=== PATIENT | female | born 1985 | race Caucasian/White ===

== ENCOUNTER → 2017-05-20 13:34 | Outpatient (CLI) | payer MEDICAID, SELFPAY ==
--- NOTE | 2017-05-20 13:39 | CT_ITS ---
CT angio chest HISTORY: ITS.REASON: CHEST PAIN, HX PE ORDERING PHYSICIAN: Marlon Vang MD PATIENT AGE: 32 years TECHNIQUE: Axial images obtained following the administration of 75 mL of Isovue 370 . Sagittal, and coronal reformatted images are also generated and reviewed. COMPARISON: 09/20/2016 FINDINGS: Previously noted pulmonary emboli have resolved. No acute hemorrhage embolus or aortic aneurysm or dissection is evident. Normal heart size without evidence of pericardial effusion. Previously noted consolidation in the right upper lobe has improved with some minimal opacity in the right middle lobe laterally which may be due to postinflammatory scarring.. Consolidation in the lingula has improved. There is minimal density in the segment left lower lobe posteriorly may be due to an area of atelectasis. Upper abdominal images are unremarkable. Calcified nodes are present in the subcarinal region. No acute bony anomalies. IMPRESSION: 1. Resolved pulmonary emboli 2. Probable postinflammatory scarring right middle lobe with resolved consolidation in the right middle lobe and lingula
== END ==
PROVIDERS: Family Provider Family Medicine; PCP Family Medicine; Visit Provider Family Medicine
DX: R07.9 Chest pain, unspecified (principal); Z86.711 Personal history of pulmonary embolism
CPT/HCPCS: 71275; Q9967

== ENCOUNTER 2017-07-01 15:14 | Emergency (ER) | payer MEDICAID, SELFPAY ==
[2017-07-01 15:24] VITALS: BP 130/76; PULSE 101; RESP 20; TEMP 36.4; O2SAT 95; BMI 38.4
--- NOTE | 2017-07-01 16:00 | HMH.EDUTC ---
[facility] [place] Impression: Viral upper respiratory illness Disposition: Home, Self-Care Condition on Discharge: Good Instructions: DI for Viral Upper Respiratory Infection -- Adult Additional Instructions: * No sign of bacterial infection. Likely viral. Virus can take 7-14 days to run their course * Monitor Temp. Follow up if fever develops * Encourage fluids, water, gatorade, powerade, pedialyte if infant/toddler/child * warm salt water gargles * warm fluids * sore throat lozenges * sleep elevated * humidifier/vaporizer * Start claritin daily * flonase 2 sprays each nostril daily but may take 2-3 days to notice improvement with it. * OK to continue sudafed Referrals: Marlon Vang MD [Primary Care Provider] - (Follow up IMMEDIATELY for new or worsening symptoms OR no noticeable improvement over the next 72 hours. 911 for difficulty breathing or swallowing) Time of Disposition: 16:15 Medical Decision Making - Mau Inquiry Pt receiving controlled substance: No Vital Signs: 07/01/17 15:24 Temperature 97.5 F L Temperature Source Temporal Artery Scan Pulse Rate [Brachial] 101 H Respiratory Rate 20 Blood Pressure [Right Arm] 130/76 Blood Pressure Mean [Right Arm] 94 Blood Pressure Source [Right Arm] Automatic Cuff Blood Pressure Position [Right Arm] Sitting 02 Sat by Pulse Oximetry 95 Oxygen Delivery Method Room Air [facility] [place] - General Stated complaint: dickinson,pressure Time Seen by Provider: 07/01/17 16:00 Mode of Arrival: Ambulatory Source of Information: Patient Limitations: No Limitations Description of Symptoms (Recalled from Triage Doc. by RN): SINUS PRESSURE, H/A, SLEEPY HEENT Symptoms (Recalled from RN notes): Yes Resp Symptoms (Recalled from RN notes): No Skin Symptoms (Recalled from RN notes): No MS Symptoms (Recalled from RN notes): No Functional Status (Recalled from RN notes): NA - History of Present Illness Provider Complaint: c/o nasal congestion, head pressure, generalized malaise since this morning. No fever, aches, chills. Sudafed only helps sinus pressure. No known sick contacts. No sore throat just drainage - Related Data Allergies Allergy/AdvReac Type Severity Reaction Status Date / Time No Known Allergies Allergy Unverified 03/26/17 15:13 - Worker's Comp Is this a Worker's Comp case?: No [facility] History I have reviewed the patient's past medical history: Yes (denies PMHx) Medical History: Denies:: Diabetes Mellitus Type 1, Diabetes Mellitus Type 2, Hypertension Laterality Cases: Bilateral: Tonsillectomy Other Surgeries: Yes: - Social History Alcohol Intake: never - Psychiatric History Expresses thoughts of harming self/others: None Suicide Plan Description: No Plan ROS Obtained: Yes Systems reviewed as appropriate & no additional complaints - Constitutional Constitutional: Reports as per HPI, Denies difficulty sleeping, Denies poor appetite - Eyes Eyes: Denies eye discharge, Denies itchy eyes - ENT Ears, Nose, Mouth, and Throat: Reports as per HPI, Denies difficulty swallowing, Denies otalgia, Denies nasal discharge, Denies pain with swallowing - Cardiovascular Cardiovascular: Denies chest pain, Denies irregular heart rhythm - Respiratory Respiratory: No cough - Gastrointestinal Gastrointestingal: Denies: diarrhea, vomiting - Integumentary/Breasts Skin/Breast: Denies rash - Neurologic Neurologic: Reports as per HPI, Denies dizziness, Reports headache(s), Denies weakness Physical Exam - General General appearance: alert, in no apparent distress - Eye Eye exam: Present: normal appearance - ENT ENT exam: Present: normal oropharynx, mucous membranes moist, TM's normal bilaterally, normal external ear exam - Expanded ENT Exam Nose exam: Absent: sinus tenderness Nasal speculum exam: Bilateral: other (congested) - Neck Neck exam: Absent: tenderness, lymphadenopathy - Chest Chest inspection: Present: symmetric
[2017-07-01 16:17] VITALS: BP 130/76; PULSE 101; RESP 20; TEMP 36.4; O2SAT 95
== END 2017-07-01 16:18 | disposition home or self-care (01) ==
PROVIDERS: Emergency Provider Nurse Practitioner Family; Family Provider Family Medicine; PCP Family Medicine
DX: J06.9 Acute upper respiratory infection, unspecified (principal)
CPT/HCPCS: 99201

== ENCOUNTER → 2018-03-21 10:01 | Outpatient (CLI) | payer MEDICAID, SELFPAY ==
--- NOTE | 2018-03-21 10:03 | XR_ITS ---
XR wrist LT min 3V HISTORY wrist pain ITS.REASON: b/l carpal tunnel ORDERING PHYSICIAN: Carlie Perry MD PATIENT AGE: 32 years Comparison: None FINDINGS: No fracture or dislocation. No lytic or blastic change. There is normal mineralization.. The joint spaces are well-preserved. No significant degenerative/arthritic changes. No erosive changes evident.. IMPRESSION: Negative wrist
--- NOTE | 2018-03-21 10:03 | XR_ITS ---
XR wrist RT min 3V HISTORY wrist pain ITS.REASON: b/l carpal tunnel ORDERING PHYSICIAN: Carlie Perry MD PATIENT AGE: 32 years Comparison: None FINDINGS: No fracture or dislocation. No lytic or blastic change. There is normal mineralization.. The joint spaces are well-preserved. No significant degenerative/arthritic changes. No erosive changes evident.. IMPRESSION: Negative wrist
== END ==
PROVIDERS: PCP Family Medicine; Visit Provider Orthopaedic Surgery
DX: G56.03 Carpal tunnel syndrome, bilateral upper limbs (principal)
CPT/HCPCS: 73110

== ENCOUNTER 2018-09-04 18:48 | Emergency (ER) | payer MEDICAID, SELFPAY ==
[2018-09-04 18:54] VITALS: BP 122/87; PULSE 76; RESP 16; TEMP 36.8; O2SAT 97; BMI 31.6
[2018-09-04 19:11] VITALS: BP 122/87; PULSE 76; RESP 16; TEMP 36.8; O2SAT 97
== END 2018-09-04 19:13 | disposition home or self-care (01) ==
LOC: UTC 18:50
PROVIDERS: Emergency Provider Nurse Practitioner Family; PCP Family Medicine
DX: Z11.1 Encounter for screening for respiratory tuberculosis (principal)
CPT/HCPCS: 90471; 99201

== ENCOUNTER → 2018-12-26 12:23 | Outpatient (CLI) | payer MEDICAID, SELFPAY ==
--- NOTE | 2018-12-26 | ECG_ITS ---
APPROVED REPORT Exam: Resting ECG HR:63 bpm ECG Measurements Heart Rate 63 AXES OR 196 P 30 QRSd 82 QRS 17 QT 382 T 50 QTc 390 <Conclusion> Normal sinus rhythm Normal ECG Electronically signed by : Jimenez Mota, 12/27/2018 12:15:41
== END ==
PROVIDERS: PCP Family Medicine; Visit Provider Nurse Practitioner Psychiatric/Mental Health
DX: F33.1 Major depressive disorder, recurrent, moderate (principal)
CPT/HCPCS: 93005

== ENCOUNTER → 2019-01-22 08:15 | Outpatient (CLI) | payer OTHER, SELFPAY ==
[2019-01-22 08:45] LABS: Basophils # 0.1 K/mm3 (0-0.2); Basophils % 0.7 % (0.1-2.0); Eosinophils # 0.2 K/mm3 (0.0-0.4); Eosinophils % 2.3 % (0.1-12.0); Hematocrit 41.1 % (37.0-47.0); Hemoglobin 13.1 g/dL (12.2-16.2); Lymphocytes # 1.8 K/mm3 (0.7-4.5); Lymphocytes % 20.7 % (10-50); Mean Corpuscular HGB Conc 31.8 g/dL (31.8-35.4); Mean Corpuscular Hemoglobin 27.7 pg (27.0-31.2); Mean Corpuscular Volume 86.9 fl (81-99); Mean Platelet Volume 8.4 fl (7.4-10.4); Monocytes # 0.5 K/mm3 (0.1-1.0); Monocytes % 5.7 % (1.7-9.3); Neutrophils # 6.3 K/mm3 (1.8-7.8); Neutrophils % 70.6 % (37.0-80.0); Platelet Count 250 K/mm3 (142-424); Red Blood Count 4.73 M/mm3 (4.20-5.40); Red Cell Distribution Width 14.2 % (11.5-17.5); White Blood Count 8.9 K/mm3 (4.8-10.8)
[2019-01-22 11:55] LABS: Alanine Aminotransferase 22 U/L (12-78); Albumin Level 3.5 gm/dL (3.4-5.0); Alkaline Phosphatase 71 U/L (46-116); Anion Gap 13.3 mEq/L (5-15); Aspartate Amino Transferase 13 U/L (15-37); Bilirubin,Total 0.5 mg/dL (0.2-1.0); Blood Urea Nitrogen 12 mg/dL (7-18); Calcium 8.7 mg/dL (8.5-10.1); Carbon Dioxide 27 mmol/L (21.0-32.0); Chloride 103 mmol/L (98-107); Chol/HDL Ratio 3.6 (1-3.5); Cholesterol 141 mg/dL (140-200); Creatinine,Serum 0.67 mg/dL (0.55-1.02); Estimated Glomerular Filt Rate 101 ml/min (>60); Free Thyroxine Index 2.9 ug/dL (5.93-13.13); GFR (African American) 122 ML/MIN (>60); Globulin 3.4 gm/dl (1.3-3.2); Glucose 96 mg/dL (74-106); HDL Cholesterol 39 mg/dL (29-89); LDL Cholesterol 91 mg/dL (0-130); Potassium 4.3 mmoL/L (3.5-5.1); Sodium 139 mmol/L (136-145); T4 (Thyroxine) 8.4 ug/dl (4.7-13.3); Thyroid Stimulating Hormone 1.32 uIU/ml (0.358-3.740); Total Protein,Serum 6.9 gm/dL (6.4-8.2); Triglycerides 56 mg/dL (30-200); Triiodothryronine (T3) Uptake 34 % (31-39); VLDL Cholesterol 11 mg/dL (0-40)
[2019-01-22 15:40] LABS: Amphetamine/Metha Screen,Urine Negative ng/mL (<1000); Barbiturates Screen,Urine Negative ng/mL (<200); Benzodiazepines Screen,Urine Negative ng/mL (<200); Cannabinoid Screen,Urine Negative ng/mL (<50); Cocaine Screen,Urine Negative ng/mL (<300); Methadone Screen,Urine Negative ng/mL (<300); Opiate Screen,Urine Negative ng/mL (<300); Phencyclidine Screen,Urine Negative ng/mL (<25)
[2019-01-23 17:27] LABS: Vitamin D 25 Hydroxy 35.4 ng/mL (30.0-100.0)
== END ==
PROVIDERS: Visit Provider Nurse Practitioner Psychiatric/Mental Health
DX: F33.1 Major depressive disorder, recurrent, moderate (principal)
CPT/HCPCS: 36415; 80053; 80061; 80305; 82652; 84436; 84443; 84479; 85025

== ENCOUNTER → 2019-10-15 14:31 | Outpatient (CLI) | payer BC, SELFPAY | PROVIDERS: PCP Nurse Practitioner Family; Visit Provider Nurse Practitioner Family | DX: Z11.1 Encounter for screening for respiratory tuberculosis (principal) ==

== ENCOUNTER 2019-10-21 16:33 | Emergency (ER) | payer BC, SELFPAY ==
[2019-10-21 16:33] VITALS: BP 155/75; PULSE 98; RESP 20; TEMP 37.1; O2SAT 98; BMI 39.3
--- NOTE | 2019-10-21 16:33 | ECG_ITS ---
APPROVED REPORT Exam: Resting ECG HR:91 bpm ECG Measurements Heart Rate 91 AXES CA 190 P 32 QRSd 84 QRS 0 QT 356 T 34 QTc 437 <Conclusion> Normal sinus rhythm Normal ECG Electronically signed by : Jimenez Mota, 10/23/2019 17:08:30
--- NOTE | 2019-10-21 16:34 | XR_ITS ---
PROCEDURE: XR CHEST 2V CLINICAL HISTORY: CHest Pain COMPARISON: 10/12/2016 FINDINGS: The cardiomediastinal silhouette and pulmonary vascularity are within normal limits. The lungs are clear without infiltrates, suspicious nodules, or pleural effusions. No acute bony abnormalities. IMPRESSION: No acute findings. Dictated by: Abisai Moya MD 10/21/2019 17:44 Electronically signed by Abisai Moya MD in [place] 10/21/2019 17:44
--- NOTE | 2019-10-21 17:00 | PC.NURSE ---
back from ct
[2019-10-21 17:02] LABS: Basophils # 0.1 K/mm3 (0-0.2); Basophils % 0.8 % (0.1-2.0); Eosinophils # 0.3 K/mm3 (0.0-0.4); Eosinophils % 2.7 % (0.1-12.0); Hematocrit 41.5 % (37.0-47.0); Hemoglobin 14.1 g/dL (12.2-16.2); Lymphocytes # 2.5 K/mm3 (0.7-4.5); Lymphocytes % 26.1 % (10-50); Mean Corpuscular Hemoglobin 29.3 pg (27.0-31.2); Mean Corpuscular Volume 86.2 fl (81-99); Mean Platelet Volume 8.4 fl (7.4-10.4); Monocytes # 0.4 K/mm3 (0.1-1.0); Monocytes % 3.8 % (1.7-9.3); Neutrophils # 6.3 K/mm3 (1.8-7.8); Neutrophils % 66.7 % (37.0-80.0); Platelet Count 228 K/mm3 (142-424); Red Blood Count 4.82 M/mm3 (4.20-5.40); Red Cell Distribution Width 13.6 % (11.5-17.5); White Blood Count 9.5 K/mm3 (4.8-10.8)
[2019-10-21 17:04] LABS: Chloride 102 mmol/L (98-107); Potassium 3.9 mmoL/L (3.5-5.1); Sodium 140 mmol/L (136-145)
[2019-10-21 17:07] LABS: Anion Gap 13.9 mEq/L (5-15); Blood Urea Nitrogen 13 mg/dl (7-17); Carbon Dioxide 28 mmol/L (22.0-30.0); Creatinine Clearance Estimated 173 mL/min (50-200); Estimated Glomerular Filt Rate 95 ml/min (>60); GFR (African American) 115 ML/MIN (>60)
[2019-10-21 17:08] LABS: Glucose 121 mg/dl (74-100)
[2019-10-21 17:22] LABS: Troponin I < 0.01 ng/ml (0.00-0.034)
[2019-10-21 17:24] LABS: Activated Partial Thrombo Time 22.9 seconds (23.6-34.0); INR 1.01 (0.9-1.1); Prothrombin Time 10.4 seconds (9.4-11.8)
[2019-10-21 17:34] VITALS: BP 115/72; PULSE 97; O2SAT 96
--- NOTE | 2019-10-21 17:51 | CT_ITS ---
PROCEDURE: CT ANGIO CHEST CLINCIAL INDICATION: sob Shortness of breath, midsternal chest pain, shortness of air COMPARISON: [facility] CT angio chest from 05/20/2017 TECHNIQUE: IV Contrast: 70ML OPTIRAY 350 Axial images obtained with sagittal and coronal reformats. All CT scans at the facility use one or more dose reduction, viz: automated exposure control, ma/kV adjustment per patient size (including targeted exams where dose is matched to indication, i.e. head), or iterative reconstruction technique. FINDINGS: HEART AND MEDIASTINAL STRUCTURES: Mild prominence of the thyroid gland with 3 nodules on the right and 2 nodules on the left measuring up to 10 mm. No evidence of pulmonary embolus or aortic aneurysm or dissection. Small hiatal hernia with mild nonspecific thickening of the distal esophagus. LUNGS AND PLEURAL SPACES: Old granulomatous disease. No lobar consolidation or collapse. Minimal thickening of the major fissure on the right laterally BONY STRUCTURES: No acute bony abnormalities apparent. UPPER ABDOMEN: Mild thickening of the distal esophagus with small hiatal hernia ADDITIONAL FINDINGS: No other significant abnormalities. IMPRESSION: No acute thoracic findings. Small hiatal hernia with mild thickening of the distal esophagus Dictated by: Abisai Moya MD 10/22/2019 08:11 Electronically signed by Abisai Moya MD in [place] 10/22/2019 08:12
--- NOTE | 2019-10-21 18:05 | PC.NURSE ---
Pt up to restroom
[2019-10-21 18:17] LABS: Urine Pregnancy, HCG Qual. Negative (Negative)
--- NOTE | 2019-10-21 18:32 | PC.NURSE ---
Pt returned from rad.
[2019-10-21 18:36] VITALS: BP 153/77; PULSE 90; O2SAT 97
--- NOTE | 2019-10-21 19:28 | HMH.EDCP ---
ED Disposition Clinical Impression: Atypical chest pain, Hiatal hernia, GERD (gastroesophageal reflux disease) Disposition: Home, Self-Care Condition on Discharge: Good Instructions: DI for Atypical Chest Pain, DI for Hiatal Hernia Prescriptions: Nabumetone 750 mg PO BID 10 Days #20 tab Transmission Status: Pending to [facility] Pantoprazole Sodium [Protonix 40mg tablet] 40 mg PO DAILY 30 Days #30 tab Transmission Status: Pending to [facility] Referrals: Haider Ng APRN [Primary Care Provider] - - Critical Care Critical Care Time: No Attestation: On 10/21/19, the high probability of a clinically significant, sudden or life threatening deterioration of the following system(s) required my full and direct attention, intervention and personal management. The time I documented below is in addition to time spent performing reported procedures but includes the following listed in this critical care notation. Medical Decision Making - Medical Records Medical records reviewed: Yes: I reviewed the patient's medical records. - Mau Inquiry Pt receiving controlled substance: No Vital Signs: 10/21/19 16:33 10/21/19 17:34 10/21/19 18:36 Temperature 98.7 F Temperature Source Oral Pulse Rate [Radial] 98 H 97 H 90 Respiratory Rate 20 Blood Pressure [Right Arm] 155/75 H 115/72 153/77 H Blood Pressure Mean [Right Arm] 101 86 102 Blood Pressure Source [Right Arm] Automatic Cuff Automatic Cuff Automatic Cuff Blood Pressure Position [Right Arm] Sitting Sitting Sitting 02 Sat by Pulse Oximetry 98 96 97 Oxygen Delivery Method Room Air Room Air Room Air - Lab Data Lab results reviewed: Yes: I reviewed the patient's lab results. Lab Results 10/21/19 16:48: WBC 9.5, RBC 4.82, Hgb 14.1, Hct 41.5, MCV 86.2, MCH 29.3, MCHC 34.0, RDW 13.6, Plt Count 228, MPV 8.4, Neut % (Auto) 66.7, Lymph % (Auto) 26.1, Bartholomew % (Auto) 3.8, Eos % (Auto) 2.7, Baso % (Auto) 0.8, Neut # (Auto) 6.3, Lymph # (Auto) 2.5, Bartholomew # (Auto) 0.4, Eos # (Auto) 0.3, Baso # (Auto) 0.1 10/21/19 16:48: PT 10.4, INR 1.01, APTT 22.9 L 10/21/19 16:48: Sodium 140, Potassium 3.9, Chloride 102, Carbon Dioxide 28, Anion Gap 13.9, BUN 13, Creatinine 0.70, Estimated Creat Clear 173, Estimated GFR 95, Est GFR ( Amer) 115, Glucose 121 H, Calcium 9.0, Troponin I < 0.01 10/21/19 18:00: Urine HCG, Qual Negative Result diagrams: 10/21/19 16:48 10/21/19 16:48 Orders (Tests/Meds): ED MEDICATIONS Discontinued Medications Generic Name Dose Route Start Last Admin Trade Name Belem PRN Reason Stop Dose Admin Ioversol 70 ml 10/21/19 18:32 10/21/19 18:34 Rad-Optiray 350 100ml Vial IV 10/21/19 18:33 70 ml ONCE ONE Administration Protocol Sodium Chloride 10 ml 10/21/19 18:32 10/21/19 18:34 Rad-Saline Flush 10ml Syringe IV 10/21/19 18:33 10 ml ONCE ONE Administration Sodium Chloride 40 ml 10/21/19 18:32 10/21/19 18:34 Rad-Ns 50ml Vial IV 10/21/19 18:33 40 ml ONCE ONE Administration ORDERS Category Date Time Status CT angio chest Stat Cat Scan 10/21/19 17:51 Taken Troponin I Q3H Lab 10/21/19 19:45 Ordered Troponin I Q3H Lab 10/21/19 22:45 Ordered - CT Data CT Scan: Chest Time Received: 16:[address] Reviewed: Yes: I have viewed the radiologist's interpretation Preliminary Findings: Abnormal (She has a small hiatal hernia.) - ECG Data Tracing #1 I reviewed this ECG and interpreted as documented below: ECG normal with no acute: arrhythmias, ischemia, conduction abnormalities, chamber hypertrophy Normal Sinus Rhythm: Yes Chest Pain HPI - General Chief Complaint: Chest Pain Stated Complaint: Chest Pain Time Seen by Provider: 10/21/19 19:28 Mode of Arrival: Ambulatory Source of Information: Patient Limitations: No Limitations Description of Symptoms (Recalled from ER Triage Doc. by RN): Complaint of midsternal chest pain. States she has a history of davie. PE. States t
[2019-10-21 19:47] VITALS: BP 126/89; PULSE 78; RESP 14; O2SAT 97
[2019-10-21 20:08] VITALS: BP 123/78; PULSE 85; RESP 14; TEMP 37.1; O2SAT 96
== END 2019-10-21 20:12 | disposition home or self-care (01) ==
PROVIDERS: Emergency Provider Family Medicine; PCP Nurse Practitioner Family
DX: R07.89 Other chest pain (principal); K44.9 Diaphragmatic hernia without obstruction or gangrene; K21.9 Gastro-esophageal reflux disease without esophagitis; Z79.899 Other long term (current) drug therapy
CPT/HCPCS: 71046; 71275; 80048; 81025; 84484; 85025; 85610; 85730; 93005; 96374; 96375; 99284; Q9967

== ENCOUNTER → 2019-10-30 09:09 | Outpatient (CLI) | payer BC, SELFPAY ==
--- NOTE | 2019-10-30 09:12 | US_ITS ---
PROCEDURE: US THYROID CLINICAL INDICATION: THYROID NODULE COMPARISON: CT ANGIO CHEST from 10/21/2019 FINDINGS: Right lobe: The right lobe is 4.6 x 1.5 x 2.3 cm. In the upper pole there is a 4 mm hypoechoic nodule. In the mid polar region there is a solid-appearing 11 x 8 mm nodule well-circumscribed wider than tall. There is an additional 7 x 5 mm hypoechoic nodule in the mid polar region. In the lower pole there is an 8 x 7 mm slightly hypoechoic nodule. Left lobe: 4.4 x 1.6 x 2 cm. 5 mm slightly hypoechoic nodule upper pole. 14 x 8 mm solid-appearing well-circumscribed isoechoic nodule mid polar region. 7 mm cyst lower pole IMPRESSION: The bilateral thyroid nodules. Largest nodule on the right is 11 x 8 mm and largest nodule on the left is 14 x 8 mm. These are T rads level 3 mildly suspicious. Recommend six-month follow-up Dictated by: Abisai Moya MD 10/30/2019 17:23 Electronically signed by Abisai Moya MD in [place] 10/30/2019 17:23
== END ==
PROVIDERS: PCP Nurse Practitioner Family; Visit Provider Nurse Practitioner Family
DX: E04.1 Nontoxic single thyroid nodule (principal)
CPT/HCPCS: 76536

== ENCOUNTER → 2019-11-12 10:11 | Outpatient (CLI) | payer BC, SELFPAY ==
--- NOTE | 2019-11-12 10:14 | US_ITS ---
PROCEDURE: US FNA THYROID CLINICAL INDICATION: THYROID NODULE Dominant left thyroid nodule COMPARISON: CT CT ANGIO CHEST from 10/21/2019 US US THYROID from 10/30/2019 TECHNIQUE: Pre biopsy ultrasound confirmed nodule in the deep posterior aspect of the left lobe with apparent cystic and solid component and could represent a conglomerate of small nodules or 1 nodule. The solid component was the area targeted for biopsy Following obtaining informed consent, using aseptic technique and local anesthesia with buffered lidocaine, fine-needle aspiration was performed of the nodule of interest using sonographic guidance. 3 passes were made into the nodule with a 21 gauge needle. Specimen was given to cytology. FINDINGS: CYTOLOGY: Nondiagnostic specimen. IMPRESSION: Nondiagnostic specimen FNA left lobe of the thyroid gland. The patient tolerated the procedure well without evidence of immediate complications and left the ultrasound suite in stable condition. Dictated b Abisai Moya MD 11/13/2019 12:15 Abisai Moya MD in [place] 11/13/2019 12:15
== END ==
PROVIDERS: PCP Nurse Practitioner Family; Visit Provider Nurse Practitioner Family
DX: E04.1 Nontoxic single thyroid nodule (principal)
CPT/HCPCS: 10005; 76942

== ENCOUNTER → 2019-11-30 16:12 | Outpatient (CLI) | payer BC, SELFPAY ==
[2019-11-30 17:45] LABS: Free T4 (Free Thyroxine) 0.99 ng/dl (0.78-2.19)
[2019-11-30 18:26] LABS: Thyroid Stimulating Hormone 1.67 uIU/mL (0.465-4.68)
[2019-12-02 16:35] LABS: Thyroid Peroxidase Antibodies <9 IU/mL (0-34)
[2019-12-03 07:19] LABS: Thyroid Stimulating Immunoglob <0.10 IU/L (0.00-0.55)
[2019-12-03 17:25] LABS: Calcitonin <2.0 pg/mL (0.0-5.0)
== END ==
PROVIDERS: Visit Provider Otolaryngology
DX: E07.9 Disorder of thyroid, unspecified (principal)
CPT/HCPCS: 36415; 82308; 84439; 84443; 84445; 86376

== ENCOUNTER → 2020-02-02 08:35 | Outpatient (CLI) | payer BC, SELFPAY ==
[2020-02-02 09:12] LABS: Basophils # 0.1 K/mm3 (0-0.2); Basophils % 0.9 % (0.1-2.0); Eosinophils # 0.2 K/mm3 (0.0-0.4); Eosinophils % 1.9 % (0.1-12.0); Hematocrit 40.6 % (37.0-47.0); Hemoglobin 13.8 g/dL (12.2-16.2); Lymphocytes # 2.1 K/mm3 (0.7-4.5); Lymphocytes % 25.5 % (10-50); Mean Corpuscular HGB Conc 33.9 g/dL (31.8-35.4); Mean Corpuscular Hemoglobin 28.2 pg (27.0-31.2); Mean Corpuscular Volume 83.2 fl (81-99); Mean Platelet Volume 8.4 fl (7.4-10.4); Monocytes # 0.5 K/mm3 (0.1-1.0); Monocytes % 5.6 % (1.7-9.3); Neutrophils # 5.5 K/mm3 (1.8-7.8); Neutrophils % 66.1 % (37.0-80.0); Platelet Count 226 K/mm3 (142-424); Red Blood Count 4.88 M/mm3 (4.20-5.40); Red Cell Distribution Width 14.4 % (11.5-17.5); White Blood Count 8.4 K/mm3 (4.8-10.8)
[2020-02-02 09:36] LABS: Chloride 103 mmol/L (98-107)
[2020-02-02 09:37] LABS: Potassium 4.1 mmoL/L (3.5-5.1); Sodium 139 mmol/L (136-145)
[2020-02-02 09:39] LABS: Alanine Aminotransferase 36 U/L (12-78); Alkaline Phosphatase 74 U/L (38-126); Anion Gap 11.1 mEq/L (5-15); Aspartate Amino Transferase 33 U/L (14-36); Bilirubin,Total 0.5 mg/dl (0.2-1.3); Blood Urea Nitrogen 14 mg/dl (7-17); Carbon Dioxide 29 mmol/L (22.0-30.0); Cholesterol 163 mg/dl (140-200); Estimated Glomerular Filt Rate 95 ml/min (>60); GFR (African American) 115 ML/MIN (>60); Iron 63 ug/dL (37-170); Triglycerides 114 mg/dl (30-150); VLDL Cholesterol 23 mg/dL (0-40)
[2020-02-02 09:40] LABS: Albumin Level 4.2 g/dl (3.5-5.0); Albumin/Globulin Ratio 1.4 (1.1-1.8); Calcium 9.2 mg/dl (8.4-10.2); Chol/HDL Ratio 4.2 (1-3.5); Globulin 2.9 g/dL (1.3-3.2); Glucose 99 mg/dl (74-100); HDL Cholesterol 39 mg/dl (40-60); Magnesium 1.9 mg/dl (1.6-2.3); Phosphorous 3.9 mg/dl (2.5-4.5); Total Protein,Serum 7.1 g/dl (6.3-8.2)
[2020-02-02 09:51] LABS: Direct LDL Cholesterol 98.36 mg/dL (100-129)
[2020-02-02 10:11] LABS: Thyroid Stimulating Hormone 1.91 uIU/mL (0.465-4.68)
[2020-02-02 10:15] LABS: Ferritin 69.8 ng/ml (6.24-137)
[2020-02-02 10:16] LABS: 25-OH Vitamin D, Total 83.6 ng/mL (30-100)
[2020-02-02 10:31] LABS: Intact Parathyroid Hormone 48.6 pg/mL (7.5-53.5)
[2020-02-02 10:47] LABS: Hemoglobin A1C 5.2 % (4.0-6.0)
[2020-02-03 13:51] LABS: Prealbumin 28 mg/dL (14-35)
[2020-02-06 17:46] LABS: Vitamin B1 154.2 nmol/L (66.5-200.0)
[2020-02-06 22:06] LABS: Methylmalonic Acid 106 nmol/L (0-378)
[2020-02-07 16:47] LABS: Vitamin E Alpha Tocopherol 7.8 mg/L (5.9-19.4)
[2020-02-08 18:06] LABS: Vitamin E Gamma Tocopherol 1.3 mg/L (0.7-4.9)
[2020-02-08 18:08] LABS: Vitamin A 43.3 ug/dL (18.9-57.3)
== END ==
PROVIDERS: Visit Provider Physician Assistant
DX: R06.00 Dyspnea, unspecified (principal); E66.01 Morbid (severe) obesity due to excess calories; R12 Heartburn; Z86.711 Personal history of pulmonary embolism
CPT/HCPCS: 36415; 80053; 80061; 82131; 82306; 82728; 82746; 83036; 83540; 83735; 83970; 84100; 84134; 84425; 84443; 84446; 84590; 85025

== ENCOUNTER → 2020-05-12 10:14 | Outpatient (CLI) | payer BC, SELFPAY ==
--- NOTE | 2020-05-12 10:15 | US_ITS ---
PROCEDURE: US THYROID CLINICAL INDICATION: thyroid nodule Follow-up thyroid nodule COMPARISON: US US THYROID from 10/30/2019 US US FNA THYROID from 11/12/2019 FINDINGS: Right lobe: 4.1 x 1.4 x 2.6 cm Left lobe: 4.5 x 1.2 x 2.0 cm Isthmus: Unremarkable Additional findings: Right lobe: 10 x 7 mm hypoechoic well-circumscribed nodules present in the mid polar region on the right unchanged. 7 x 4 mm hypoechoic nodule mid polar region unchanged. 6 x 6 mm mixed nodule lower pole unchanged. 8 mm mixed nodule lower pole posteriorly unchanged Left lobe: In the upper pole there is a 4 mm isoechoic nodule unchanged. New mid polar region posteriorly there is a next nodule measuring approximately 16 mm. This previously measured 19 mm. IMPRESSION: No significant change bilateral thyroid nodules. Continued annual follow-up suggested. Dictated by: Abisai Moya MD 05/13/2020 05:31 Abisai Moya MD in [place] 05/13/2020 05:31
== END ==
PROVIDERS: PCP Nurse Practitioner Family; Visit Provider Otolaryngology
DX: E04.1 Nontoxic single thyroid nodule (principal)
CPT/HCPCS: 76536

== ENCOUNTER → 2020-11-29 08:44 | Outpatient (CLI) | payer BC, SELFPAY ==
--- NOTE | 2020-11-29 08:44 | US_ITS ---
PROCEDURE: US THYROID CLINICAL INDICATION: Goiter, Thyroid nodules Follow-up nodules COMPARISON: US US THYROID from 05/12/2020 FINDINGS: Right lobe: The right lobe is 4.2 x 1.6 x 2.4 cm. Multiple small solid appearing nodules of the right lobe are once again noted. There are 2 dominant nodules on the right. One in the upper pole which is slightly hypoechoic with slight increased echogenicity centrally 9 x 7 mm unchanged. The other dominant nodules in the lower pole 9 x 6 mm and also appears unchanged. Other smaller nodules are present and do not appear significantly changed. Left lobe: 4.1 x 1.1 x 2 cm. Multiple small solid-appearing nodules are once again noted. The dominant nodule on the left is 11 x 5 mm isoechoic not significantly changed. This is in the lower pole. Previously noted 16 mm nodule in the posterior aspect of the left lobe is not well demonstrated on today's exam. Isthmus: Unremarkable Additional findings: IMPRESSION: No significant change multinodular goiter Dictated by: Abisai Moya MD 11/29/2020 10:20 Abisai Moya MD in [place] 11/29/2020 10:20
[2020-11-29 11:40] LABS: Free T4 (Free Thyroxine) 0.98 ng/dl (0.78-2.19)
[2020-11-29 11:54] LABS: Thyroid Stimulating Hormone 1.02 uIU/mL (0.465-4.68)
[2020-11-30 12:42] LABS: Thyroid Peroxidase Antibodies 11 IU/mL (0-34)
== END ==
PROVIDERS: PCP Nurse Practitioner Family; Visit Provider Otolaryngology
DX: E04.9 Nontoxic goiter, unspecified (principal)
CPT/HCPCS: 36415; 76536; 84439; 84443; 86376

== ENCOUNTER 2021-02-15 10:14 | Emergency (ER) | payer BC, SELFPAY ==
[2021-02-15 11:21] VITALS: BP 125/67; PULSE 81; RESP 14; TEMP 36.9; O2SAT 98; BMI 31.1
--- NOTE | 2021-02-15 11:31 | HMH.EDUTC ---
[facility] [place] Dis[place] Clinical Impression: Viral upper respiratory illness Disposition: Home, Self-Care Condition on Discharge: Good Instructions: DI for Viral Upper Respiratory Infection -- Adult, DI for Viral Syndrome, Preventing the Spread of Coronavirus Discharge Instructions Additional Instructions: Drink plenty of fluids. Take tylenol or ibuprofen for pain or fever. Take the medications as directed. Follow up with your regular doctor. GO TO THE ER FOR ANY WORSENING SYMPTOMS Quarantine until you know the results of your covid-19 test. If it is positive, the health department should call you and give you further instructions about your length of Quarantine and other things. Notify your school or workplace of your results and follow their instructions regarding return to work/school. The cough medication (promethazine dm) will make you drowsy, so don't drive or operate heavy machinery after taking it. Prescriptions: Brompheniramine/Pseudoephed/Dm [Bromfed Dm Cough Syrup] 5 ml PO Q6HP PRN #240 ml PRN Reason: Cough Transmission Status: Received by [facility] predniSONE [Deltasone 10mg tablet] 10 mg PO BID 3 Days #6 tab Transmission Status: Received by [facility] Referrals: Aster Mayes PA [Primary Care Provider] - Time of Disposition: 12:04 Medical Decision Making - Medical Records Medical records reviewed: No: I reviewed the patient's medical records. - Mau Inquiry Pt receiving controlled substance: No Vital Signs: 02/15/21 11:21 02/15/21 12:40 Temperature 98.4 F 98.4 F Temperature Source Oral Pulse Rate 81 Pulse Rate [Left] 81 Respiratory Rate 14 14 Blood Pressure 125/67 Blood Pressure [Right Arm] 125/67 Blood Pressure Mean [Right Arm] 86 02 Sat by Pulse Oximetry 98 - Lab Data Lab results reviewed: Yes: I reviewed the patient's lab results. Lab Results 02/15/21 11:25: Strep Scn Rapid Clinic Negative Orders (Tests/Meds): ORDERS Category Date Time Status Strep Screen Confirmation Stat Micro 02/15/21 11:25 Received [facility] [place] HPI - General Stated complaint: runny nose Time Seen by Provider: 02/15/21 11:31 Mode of Arrival: Ambulatory Source of Information: Patient Limitations: No Limitations Description of Symptoms (Recalled from Triage Doc. by RN): pt c/o nasal drainage and sore throat since this am. HEENT Symptoms (Recalled from RN notes): Yes (nasal drainage and sore throat) Resp Symptoms (Recalled from RN notes): No Skin Symptoms (Recalled from RN notes): No MS Symptoms (Recalled from RN notes): No Functional Status (Recalled from RN notes): na - History of Present Illness Provider Complaint: She states that for the past 2 days she has had a scratchy throat, runny nose, a dry cough and she has felt bad. She denies any known covid-19 exposure. - Related Data Home Medications Medication Instructions Recorded Confirmed famotidine 20 mg tablet PO 11/30/19 12/06/20 enoxaparin 40 mg/0.4 mL 40 mg SQ DAILY 05/17/20 12/06/20 subcutaneous syringe omeprazole 20 mg capsule,delayed 20 mg PO cap 12/06/20 12/06/20 release Previous Rx's Medication Instructions Recorded Brompheniramine/Pseudoephed/Dm 5 ml PO Q6HP PRN #240 ml 02/15/21 [Bromfed Dm Cough Syrup] predniSONE [Deltasone 10mg tablet] 10 mg PO BID 3 Days #6 tab 02/15/21 Allergies Allergy/AdvReac Type Severity Reaction Status Date / Time No Known Allergies Allergy Verified 12/06/20 08:43 - Worker's Comp Is this a Worker's Comp case?: No [facility] History - Hepatitis A Screen Drug use history?: No High risk sexual behaviors?: No History of sexually transmitted infection?: No Currently employed?: No Childcare worker?: No Do you have indoor plumbing?: Yes Do you have electricity?: Yes Attestation statement:: This patient has been screened for Hepatitis A risk factors. I have reviewed the patient's past medical history: Yes Medical History: Reports:
[2021-02-15 11:56] LABS: UTC Strep Screen (Rapid) Negative (Negative)
--- NOTE | 2021-02-15 12:32 | PC.NURSE ---
pt refused covid swab against providers orders.
[2021-02-15 12:40] VITALS: BP 125/67; PULSE 81; RESP 14; TEMP 36.9
== END 2021-02-15 12:40 | disposition home or self-care (01) ==
PROVIDERS: Emergency Provider Nurse Practitioner Family; PCP Nurse Practitioner Family
DX: J06.9 Acute upper respiratory infection, unspecified (principal); K21.9 Gastro-esophageal reflux disease without esophagitis
CPT/HCPCS: 87880; 99202; G0463

== ENCOUNTER 2021-02-25 20:29 | Emergency (ER) | payer BC, SELFPAY ==
[2021-02-25 20:30] VITALS: BP 143/68; PULSE 89; RESP 16; TEMP 36.9; O2SAT 100; BMI 31.1
--- NOTE | 2021-02-25 20:48 | XR_ITS ---
PROCEDURE INFORMATION: Exam: XR Pelvis Exam date and time: 02/25/2021 8:48 PM Age: 35 years old Clinical indication: Injury or trauma; Fall; Blunt trauma (contusions or hematomas); Bilateral; Pelvic region; Injury date: 02/25/2021; Injury details: Hit head on doorframe and then fell down TECHNIQUE: Imaging protocol: XR pelvis. Views: 1 or 2 view. COMPARISON: No relevant prior studies available. FINDINGS: Bones/joints: Joint spaces are normal. No fracture or malalignment. Soft tissues: Unremarkable. Organs: There is an IUD in the pelvis. IMPRESSION: No fracture or malalignment.
--- NOTE | 2021-02-25 20:48 | CT_ITS ---
PROCEDURE INFORMATION: Exam: CT Cervical Spine Without Contrast Exam date and time: 02/25/2021 8:48 PM Age: 35 years old Clinical indication: Injury or trauma; Fall; Blunt trauma; Injury date: 02/25/2021; Injury details: Hit left head on doorframe and then fell TECHNIQUE: Imaging protocol: Computed tomography images of the cervical spine without contrast. Radiation optimization: All CT scans at this facility use at least one of these dose optimization techniques: automated exposure control; mA and/or kV adjustment per patient size (includes targeted exams where dose is matched to clinical indication); or iterative reconstruction. COMPARISON: CT HEAD/BRAIN WO CON 02/25/2021 9:29 PM FINDINGS: Bones/joints: No acute fracture. Normal alignment. Discs/Spinal canal/Neural foramina: Facet joints are unremarkable. Intervertebral disc spaces are unremarkable. No spinal stenosis. Lungs: Lung apices are normal. Soft tissues: Unremarkable. IMPRESSION: No acute findings.
--- NOTE | 2021-02-25 20:48 | CT_ITS ---
PROCEDURE INFORMATION: Exam: CT Head Without Contrast Exam date and time: 02/25/2021 8:48 PM Age: 35 years old Clinical indication: Injury or trauma; Fall; Blunt trauma (contusions or hematomas); With loss of consciousness; Loss of consciousness for 30 minutes or less; Injury date: 02/25/2021; Injury details: Hit left side head on door frame and then fell TECHNIQUE: Imaging protocol: Computed tomography of the head without contrast. Radiation optimization: All CT scans at this facility use at least one of these dose optimization techniques: automated exposure control; mA and/or kV adjustment per patient size (includes targeted exams where dose is matched to clinical indication); or iterative reconstruction. COMPARISON: US THYROID 11/29/2020 8:53 AM FINDINGS: Brain: Unremarkable. No hemorrhage or acute infarction. Unremarkable white matter. No midline shift or mass effect. Cerebral ventricles: No ventriculomegaly. Paranasal sinuses: Visualized sinuses are clear. Mastoid air cells: Mastoid air cells are clear. Bones/joints: Unremarkable. No acute fracture. Soft tissues: Unremarkable. IMPRESSION: No acute intracranial abnormality.
--- NOTE | 2021-02-25 20:48 | XR_ITS ---
PROCEDURE INFORMATION: Exam: XR Chest Exam date and time: 02/25/2021 8:48 PM Age: 35 years old Clinical indication: Injury or trauma; Fall; Blunt trauma (contusions or hematomas); Injury date: 02/25/2021; Injury details: Hit head on doorframe and then fell TECHNIQUE: Imaging protocol: XR of the chest. Views: 2 views. COMPARISON: CR XR CHEST 2V 10/21/2019 4:49 PM FINDINGS: Lungs: Clear. No consolidation. Pleural spaces: No pleural effusion. No pneumothorax. Heart/Mediastinum: Unremarkable. No cardiomegaly. Bones/joints: Unremarkable. IMPRESSION: No acute findings.
[2021-02-25 21:18] LABS: Urine Pregnancy, HCG Qual. Negative (Negative)
--- NOTE | 2021-02-26 00:24 | HMH.EDHA ---
ED Disposition Clinical Impression: Concussion without loss of consciousness Qualifiers: Encounter type: initial encounter Qualified Code(s): S06.0X0A - Concussion without loss of consciousness, initial encounter Disposition: Home, Self-Care Condition on Discharge: Good Instructions: DI for Concussion Additional Instructions: ice and advil and tyenol Referrals: Aster Mayes PA [Primary Care Provider] - - Critical Care Critical Care Time: No Attestation: On 02/25/21, the high probability of a clinically significant, sudden or life threatening deterioration of the following system(s) required my full and direct attention, intervention and personal management. The time I documented below is in addition to time spent performing reported procedures but includes the following listed in this critical care notation. Medical Decision Making - Medical Records Medical records reviewed: Yes: I reviewed the patient's medical records. - Mau Inquiry Pt receiving controlled substance: No Vital Signs: 02/25/21 20:30 Temperature 98.4 F Temperature Source Oral Pulse Rate [Left] 89 Respiratory Rate 16 Blood Pressure [Right Arm] 143/68 H Blood Pressure Mean [Right Arm] 93 02 Sat by Pulse Oximetry 100 - Lab Data Lab results reviewed: Yes: I reviewed the patient's lab results. Lab Results 02/25/21 21:00: Urine HCG, Qual Negative - Radiology Data #1 Image(s): Chest, Pelvis Image Reviewed: Yes I have reviewed radiologist's interpretation Preliminary Findings: No Fracture Seen - CT Data CT Scan: Head, C-Spine Time Received: 00:[address] Reviewed: Yes: I have viewed the radiologist's interpretation Preliminary Findings: No Fracture Seen Medical Decision Narrative: pt with head injury and no fx or loc and stable exam and xrays Headache HPI - General Chief Complaint: Head Injury Stated Complaint: AO 02/25 1800 hit headdoor frame Time Seen by Provider: 02/25/21 22:00 Mode of Arrival: Family Vehicle Source of Information: Patient, Medical Record Limitations: No Limitations Description of Symptoms (Recalled from ER Triage Doc. by RN): pt hit head on door frame does have noticable swelling on the right side of the head. pt states that it hurts and she gets a funny feeling when she touches it. pt states she had a short loss of conciousness - History of Present Illness HPI Narrative: hit head on door frame with pain lt head but no loc MD Complaint: headache Onset (ago): hour(s) Onset description: other (post trauma) Location: left, temporal Severity: moderate Quality: throbbing Context: recent head injury Associated symptoms: none Treatments prior to arrival: none - Related Data Home Medications Medication Instructions Recorded Confirmed famotidine 20 mg tablet PO 11/30/19 12/06/20 enoxaparin 40 mg/0.4 mL 40 mg SQ DAILY 05/17/20 12/06/20 subcutaneous syringe omeprazole 20 mg capsule,delayed 20 mg PO cap 12/06/20 12/06/20 release Previous Rx's Medication Instructions Recorded Brompheniramine/Pseudoephed/Dm 5 ml PO Q6HP PRN #240 ml 02/15/21 [Bromfed Dm Cough Syrup] predniSONE [Deltasone 10mg tablet] 10 mg PO BID 3 Days #6 tab 02/15/21 Allergies Allergy/AdvReac Type Severity Reaction Status Date / Time No Known Allergies Allergy Verified 12/06/20 08:43 [facility] History - Hepatitis A Screen Drug use history?: No High risk sexual behaviors?: No History of sexually transmitted infection?: No Currently employed?: No Childcare worker?: No Do you have indoor plumbing?: Yes Do you have electricity?: Yes Attestation statement:: This patient has been screened for Hepatitis A risk factors. I have reviewed the patient's past medical history: Yes Medical History: Reports:: Deep Vein Thrombosis, Gastroesophageal Reflux Disease(GERD), Hiatal Hernia Denies:: Diabetes Mellitus Type 1, Diabetes Mellitus Type 2, Hypertension Other Medical History: Reports: Sinus Pro
[2021-02-26 00:50] VITALS: BP 102/59; PULSE 73; RESP 16; TEMP 36.8; O2SAT 98
== END 2021-02-26 01:06 | disposition home or self-care (01) ==
PROVIDERS: Emergency Provider Emergency Medicine; PCP Nurse Practitioner Family
DX: S06.0X0A Concussion without loss of consciousness, initial encounter (principal); W22.8XXA Striking against or struck by other objects, initial encounter; Y92.019 Unspecified place in single-family (private) house as the place of occurrence of the external cause; K21.9 Gastro-esophageal reflux disease without esophagitis
CPT/HCPCS: 70450; 71046; 72125; 72170; 81025; 99282

== ENCOUNTER 2021-03-05 07:45 | Emergency (ER) | payer BC, SELFPAY ==
[2021-03-05 07:56] VITALS: BP 131/81; PULSE 68; RESP 18; TEMP 37.1; O2SAT 98; BMI 31.1
--- NOTE | 2021-03-05 08:01 | HMH.EDGENADL ---
ED Disposition Clinical Impression: Left lower quadrant pain Disposition: Home, Self-Care Condition on Discharge: Good Instructions: DI for Acute Abdominal Pain Additional Instructions: Find an alternative daily fiber source if you no longer want to eat oatmeal daily. Return the emergency department for fever, return in worsening pain, nausea with vomiting, abdominal bloating. Referrals: Marlon Vang MD [Primary Care Provider] - 3 days Time of Disposition: 08:48 - Critical Care Critical Care Time: No Attestation: On 03/05/21, the high probability of a clinically significant, sudden or life threatening deterioration of the following system(s) required my full and direct attention, intervention and personal management. The time I documented below is in addition to time spent performing reported procedures but includes the following listed in this critical care notation. Medical Decision Making - Medical Records Medical records reviewed: Yes: I reviewed the patient's medical records. - Mau Inquiry Pt receiving controlled substance: No Vital Signs: 03/05/21 07:56 03/05/21 08:10 Temperature 98.7 F Temperature Source Oral Pulse Rate 95 H Pulse Rate [Right Radial] 68 Respiratory Rate 18 Blood Pressure 111/69 Blood Pressure [Right Arm] 131/81 Blood Pressure Mean 83 Blood Pressure Mean [Right Arm] 97 Blood Pressure Source [Right Arm] Automatic Cuff Blood Pressure Position [Right Arm] Supine 02 Sat by Pulse Oximetry 98 97 Oxygen Delivery Method Room Air - Lab Data Lab results reviewed: Yes: I reviewed the patient's lab results. Lab Results 03/05/21 08:00: WBC 5.9, RBC 4.68, Hgb 14.2, Hct 41.2, MCV 88.0, MCH 30.3, MCHC 34.5, RDW 13.7, Plt Count 214, MPV 9.5, Neut % (Auto) 61.9, Lymph % (Auto) 29.0, [place] % (Auto) 4.5, Eos % (Auto) 3.2, Baso % (Auto) 1.4, Neut # (Auto) 3.6, Lymph # (Auto) 1.7, [place] # (Auto) 0.3, Eos # (Auto) 0.2, Baso # (Auto) 0.1 03/05/21 08:00: Sodium 140, Potassium 4.1, Chloride 106, Carbon Dioxide 28, Anion Gap 10.1, BUN 14, Creatinine 0.60, Estimated Creat Clear 158, Estimated GFR 113, Est GFR ( Amer) 137, Glucose 125 H, Calcium 9.0, Total Bilirubin 0.4, AST 28, ALT 17, Alkaline Phosphatase 79, Total Protein 6.7, Albumin 3.9, Globulin 2.8, Albumin/Globulin Ratio 1.4, Lipase 100 03/05/21 08:02: Urine Color Yellow, Urine Appearance Clear, Urine pH 7.0, Ur Specific [place] 1.020, Urine Protein Negative, Urine Glucose (UA) Negative, Urine Ketones Negative, Urine Blood Trace-l, Urine Nitrate Negative, Urine Bilirubin Negative, Urine Urobilinogen 1.0, Ur Leukocyte Esterase 1+ A, Urine RBC 3-5, Urine WBC Occasional, Ur Squamous Epith Cells Occasional, Urine Bacteria Trace 03/05/21 08:02: Urine HCG, Qual Negative Result diagrams: 03/05/21 08:00 03/05/21 08:00 Orders (Tests/Meds): ED MEDICATIONS Generic Name Dose Route Start Last Admin Trade Name Freq PRN Reason Stop Dose Admin Sodium Chloride 1,000 mls @ 999 mls/hr 03/05/21 08:15 03/05/21 08:15 Sod Chlor 0.9% 1000ml Bag IV 03/05/21 09:15 999 mls/hr .Q1H1M NILE Administration Discontinued Medications Generic Name Dose Route Start Last Admin Trade Name Freq PRN Reason Stop Dose Admin Ketorolac Tromethamine 30 mg 03/05/21 08:03 03/05/21 08:15 Ketorolac 30mg/Ml Vial IV 03/05/21 08:04 30 mg ONCE ONE Administration Ondansetron HCl 4 mg 03/05/21 08:03 03/05/21 08:15 Ondansetron 4mg/2ml Vial IV 03/05/21 08:04 4 mg ONCE ONE Administration ORDERS Category Date Time Status Urine Culture Stat Micro 03/05/21 08:02 Received Medical Decision Narrative: 35yo F evaluated for left lower quadrant abdominal pain. Patient is in no acute distress on initial evaluation. Differential diagnosis includes but not limited to: Kidney stone, constipation, postoperative complication from her gastric bypass, ovarian cyst, ovarian torsion, diverticulitis, colitis. Patient is in no pain upon initial
[2021-03-05 08:10] VITALS: BP 111/69; PULSE 95; O2SAT 97
[2021-03-05 08:13] LABS: Urine Pregnancy, HCG Qual. Negative (Negative)
[2021-03-05 08:14] LABS: Microscopic, Urine URINE MICROSCOPIC (MICROSCOPIC)
[2021-03-05 08:18] LABS: Basophils # 0.1 K/mm3 (0-0.2); Basophils % 1.4 % (0.1-2.0); Eosinophils # 0.2 K/mm3 (0.0-0.4); Eosinophils % 3.2 % (0.1-12.0); Hematocrit 41.2 % (37.0-47.0); Hemoglobin 14.2 g/dL (12.2-16.2); Lymphocytes # 1.7 K/mm3 (0.7-4.5); Mean Corpuscular HGB Conc 34.5 g/dL (31.8-35.4); Mean Corpuscular Hemoglobin 30.3 pg (27.0-31.2); Mean Platelet Volume 9.5 fl (7.4-10.4); Monocytes # 0.3 K/mm3 (0.1-1.0); Monocytes % 4.5 % (1.7-9.3); Neutrophils # 3.6 K/mm3 (1.8-7.8); Neutrophils % 61.9 % (37.0-80.0); Platelet Count 214 K/mm3 (142-424); Red Blood Count 4.68 M/mm3 (4.20-5.40); Red Cell Distribution Width 13.7 % (11.5-17.5); White Blood Count 5.9 K/mm3 (4.8-10.8)
[2021-03-05 08:19] LABS: Appearance,Urine CLEAR (Clear); Bilirubin,Urine Negative (Negative); Blood, Urine TRACE-L (Negative); Color,Urine YELLOW (Yellow); Glucose,Urine (UA) Negative (Negative); Ketones,Urine Negative (Negative); Leukocyte Esterase,Urine 1+ (Negative); Nitrate,Urine Negative (Negative); Protein,Urine Negative (Negative)
[2021-03-05 08:23] LABS: Chloride 106 mmol/L (98-107); Potassium 4.1 mmoL/L (3.5-5.1); Sodium 140 mmol/L (136-145)
[2021-03-05 08:25] LABS: Blood Urea Nitrogen 14 mg/dl (7-17); Creatinine Clearance Estimated 158 mL/min (50-200); Estimated Glomerular Filt Rate 113 ml/min (>60); GFR (African American) 137 ML/MIN (>60)
[2021-03-05 08:26] LABS: Alanine Aminotransferase 17 U/L (12-78); Albumin Level 3.9 g/dl (3.5-5.0); Albumin/Globulin Ratio 1.4 (1.1-1.8); Alkaline Phosphatase 79 U/L (38-126); Anion Gap 10.1 mEq/L (5-15); Aspartate Amino Transferase 28 U/L (14-36); Bilirubin,Total 0.4 mg/dl (0.2-1.3); Carbon Dioxide 28 mmol/L (22.0-30.0); Globulin 2.8 g/dL (1.3-3.2); Glucose 125 mg/dl (74-100); Lipase 100 U/L (23-300); Total Protein,Serum 6.7 g/dl (6.3-8.2)
[2021-03-05 08:31] LABS: Bacteria,Urine Trace /lpf; Squamous Epithelial Cell,Urine Occasional #/hpf (0-5); WBC,Urine Occasional #/hpf (0-3)
[2021-03-05 09:15] VITALS: BP 113/64; PULSE 64; RESP 18; TEMP 37.1; O2SAT 97
== END 2021-03-05 09:15 | disposition home or self-care (01) ==
PROVIDERS: Emergency Provider Family Medicine; PCP Family Medicine
DX: R10.32 Left lower quadrant pain (principal); K21.9 Gastro-esophageal reflux disease without esophagitis
CPT/HCPCS: 80053; 81001; 81025; 83690; 85025; 87086; 96365; 96375; 99283; J2405

== ENCOUNTER 2021-03-10 10:24 | Emergency (ER) | payer BC, SELFPAY ==
[2021-03-10] VITALS (10 sets, daily range): BP systolic 110–141; BP diastolic 62–98; PULSE 82–91; RESP 12–24; TEMP 36.4–43; O2SAT 95–98; BMI 31.1
--- NOTE | 2021-03-10 10:52 | CT_ITS ---
PROCEDURE: CT ABDOMEN PELVIS WO CON CLINICAL INDICATION: left flank pain COMPARISON: CT CT ANGIO CHEST from 10/21/2019 TECHNIQUE: Axial images obtained with sagittal and coronal reformats. All CT scans at the facility use one or more dose reduction, viz: automated exposure control, ma/kV adjustment per patient size (including targeted exams where dose is matched to indication, i.e. head), or iterative reconstruction technique. FINDINGS: LOWER THORAX: Minimal scarring right lung base laterally. ABDOMEN & PELVIS: Prior cholecystectomy. No focal liver lesion. Prior gastric bypass. The spleen and adrenal glands have an unremarkable appearance. No obvious pancreatic mass There is mild moderate left hydronephrosis and hydroureter secondary to a 5 mm stone in the distal left ureter at the ureterovesical junction. 2 mm stone is present in the mid aspect of the left kidney. No intestinal obstruction or free air. No evidence of appendicitis or diverticulitis. There is an IUD in place. There are multiple pelvic calcifications consistent with phleboliths. There is a 3 cm right adnexal cystic lesion suggesting an ovarian cyst. No cul-de-sac fluid. The uterus and cervix are somewhat bulky. Degenerative disc disease L5-S1. No acute bony findings. IMPRESSION: 5 mm left ureterovesical junction stone with moderate left-sided hydronephrosis and hydroureter. 3 cm cystic lesion in the right adnexa suggesting ovarian cyst with IUD in place Dictated by: Abisai Moya MD 03/10/2021 12:14 Abisai Moya MD in [facility] 03/10/2021 12:14
[2021-03-10 11:01] LABS: Microscopic, Urine URINE MICROSCOPIC (MICROSCOPIC)
[2021-03-10 11:06] LABS: Alanine Aminotransferase 19 U/L (12-78); Albumin Level 4.3 g/dl (3.5-5.0); Albumin/Globulin Ratio 1.4 (1.1-1.8); Alkaline Phosphatase 79 U/L (38-126); Anion Gap 6.8 mEq/L (5-15); Aspartate Amino Transferase 31 U/L (14-36); Bilirubin,Total 0.4 mg/dl (0.2-1.3); Blood Urea Nitrogen 14 mg/dl (7-17); Calcium 9.3 mg/dl (8.4-10.2); Carbon Dioxide 30 mmol/L (22.0-30.0); Chloride 105 mmol/L (98-107); Estimated Glomerular Filt Rate 95 ml/min (>60); GFR (African American) 115 ML/MIN (>60); Glucose 89 mg/dl (74-100); Lipase 130 U/L (23-300); Potassium 3.8 mmoL/L (3.5-5.1); Sodium 138 mmol/L (136-145); Total Protein,Serum 7.3 g/dl (6.3-8.2)
[2021-03-10 11:07] LABS: Appearance,Urine CLEAR (Clear); Bilirubin,Urine Negative (Negative); Blood, Urine 3+ (Negative); Color,Urine YELLOW (Yellow); Glucose,Urine (UA) Negative (Negative); Ketones,Urine Negative (Negative); Leukocyte Esterase,Urine Negative (Negative); Nitrate,Urine Negative (Negative); Protein,Urine 2+ (Negative); Specific Gravity, Urine >= 1.030 (1.005-1.030); Urobilinogen,Urine 0.2 EU/dl (0.2)
[2021-03-10 11:12] LABS: Basophils # 0.1 K/mm3 (0-0.2); Basophils % 1.3 % (0.1-2.0); Eosinophils # 0.3 K/mm3 (0.0-0.4); Eosinophils % 3.8 % (0.1-12.0); Hematocrit 42.4 % (37.0-47.0); Hemoglobin 14.2 g/dL (12.2-16.2); Lymphocytes # 1.9 K/mm3 (0.7-4.5); Lymphocytes % 27.9 % (10-50); Mean Corpuscular HGB Conc 33.5 g/dL (31.8-35.4); Mean Corpuscular Hemoglobin 29.8 pg (27.0-31.2); Mean Platelet Volume 9.4 fl (7.4-10.4); Monocytes # 0.5 K/mm3 (0.1-1.0); Monocytes % 6.8 % (1.7-9.3); Neutrophils # 4.2 K/mm3 (1.8-7.8); Neutrophils % 60.2 % (37.0-80.0); Platelet Count 225 K/mm3 (142-424); Red Blood Count 4.77 M/mm3 (4.20-5.40); Red Cell Distribution Width 13.6 % (11.5-17.5)
[2021-03-10 11:15] LABS: Urine Pregnancy, HCG Qual. Negative (Negative)
--- NOTE | 2021-03-10 11:20 | PC.NURSE ---
Pt to CT
[2021-03-10 11:40] LABS: Bacteria,Urine 1+ /lpf
--- NOTE | 2021-03-10 11:42 | HMH.EDGENADL ---
ED Disposition Clinical Impression: Kidney stone on left side Urinary tract infection Qualifiers: Urinary tract infection type: acute cystitis Hematuria presence: with hematuria Qualified Code(s): N30.01 - Acute cystitis with hematuria Disposition: Xfer Other Condition on Discharge: Fair Referrals: Aster Mayes PA [Primary Care Provider] - - Critical Care Critical Care Time: No Attestation: On 03/10/21, the high probability of a clinically significant, sudden or life threatening deterioration of the following system(s) required my full and direct attention, intervention and personal management. The time I documented below is in addition to time spent performing reported procedures but includes the following listed in this critical care notation. Medical Decision Making - Medical Records Medical records reviewed: Yes: I reviewed the patient's medical records. - Mau Inquiry Pt receiving controlled substance: Yes Mau was queried for this patient: Yes Reference #:: [id number] Risks and benefits of using a controlled substance: were discussed with pt by me Vital Signs: 03/10/21 10:25 Temperature 98.7 F Temperature Source Oral Pulse Rate [Right Radial] 84 Respiratory Rate 24 Blood Pressure [Right Arm] 127/90 Blood Pressure Mean [Right Arm] 102 Blood Pressure Source [Right Arm] Automatic Cuff Blood Pressure Position [Right Arm] Sitting 02 Sat by Pulse Oximetry 98 Oxygen Delivery Method Room Air - Lab Data Lab Results 03/10/21 10:36: Urine Color Yellow, Urine Appearance Clear, Urine pH 6.0, Ur Specific [place] >= 1.030, Urine Protein 2+, Urine Glucose (UA) Negative, Urine Ketones Negative, Urine Blood 3+, Urine Nitrate Negative, Urine Bilirubin Negative, Urine Urobilinogen 0.2, Ur Leukocyte Esterase Negative, Urine RBC 10-20, Urine WBC 3-5, Ur Squamous Epith Cells 5-10, Urine Bacteria 1+ 03/10/21 10:36: WBC 7.0, RBC 4.77, Hgb 14.2, Hct 42.4, MCV 89.0, MCH 29.8, MCHC 33.5, RDW 13.6, Plt Count 225, MPV 9.4, Neut % (Auto) 60.2, Lymph % (Auto) 27.9, [place] % (Auto) 6.8, Eos % (Auto) 3.8, Baso % (Auto) 1.3, Neut # (Auto) 4.2, Lymph # (Auto) 1.9, [place] # (Auto) 0.5, Eos # (Auto) 0.3, Baso # (Auto) 0.1 03/10/21 10:36: Urine HCG, Qual Negative 03/10/21 10:36: Sodium 138, Potassium 3.8, Chloride 105, Carbon Dioxide 30, Anion Gap 6.8, BUN 14, Creatinine 0.70, Estimated GFR 95, Est GFR ( Amer) 115, Glucose 89, Calcium 9.3, Total Bilirubin 0.4, AST 31, ALT 19, Alkaline Phosphatase 79, Total Protein 7.3, Albumin 4.3, Globulin 3.0, Albumin/Globulin Ratio 1.4, Lipase 130 Result diagrams: 03/10/21 10:36 03/10/21 10:36 Orders (Tests/Meds): ED MEDICATIONS Discontinued Medications Generic Name Dose Route Start Last Admin Trade Name Freq PRN Reason Stop Dose Admin Sodium Chloride 1,000 mls @ 999 mls/hr 03/10/21 11:00 03/10/21 11:18 Sod Chlor 0.9% 1000ml Bag IV 03/10/21 12:00 999 mls/hr .Q1H1M NILE Administration Ketorolac Tromethamine 30 mg 03/10/21 10:51 03/10/21 11:18 Ketorolac 30mg/Ml Vial IV 03/10/21 10:52 30 mg ONCE ONE Administration Morphine Sulfate 4 mg 03/10/21 10:51 03/10/21 11:18 Morphine 4mg/Ml Syringe IV 03/10/21 10:52 4 mg ONCE ONE Administration Morphine Sulfate 4 mg 03/10/21 12:55 Morphine 4mg/Ml Syringe IV 03/10/21 12:56 ONCE ONE Ondansetron HCl 4 mg 03/10/21 10:51 03/10/21 11:18 Ondansetron 4mg/2ml Vial IV 03/10/21 10:52 4 mg ONCE ONE Administration - CT Data CT Scan: Abdomen, Pelvis Time Received: 14:[address] Reviewed: Yes: I have reviewed the patient's CT results, I have viewed the radiologist's interpretation Findings Narrative: IMPRESSION: 5 mm left ureterovesical junction stone with moderate left-sided hydronephrosis and hydroureter. 3 cm cystic lesion in the right adnexa suggesting ovarian cyst with IUD in place - Reevaluation(s) Time: 14:01 Reevaluation #1: Patient does have evidence of 5 mm kidne
--- NOTE | 2021-03-10 12:57 | PC.NURSE ---
dr. hernandez at BS
--- NOTE | 2021-03-10 13:03 | PC.NURSE ---
Dr. Zamorano states he plans to take pt to OR later in the day, requests that we keep pt in ER until able to take pt to OR. He relayed this information to ER MD.
--- NOTE | 2021-03-10 13:49 | HMH.CONS ---
*Admission Date: 03/10/21 *Reason for consult:: Left renal colic secondary to a 5 mm distal ureteral stone. *History of present illness: 35-year-old white female with a 5 mm distal ureteral stone presents for second emergency room this week due to left-sided flank pain. She has associated nausea. No fevers or chills reported. Her CT scan was reviewed and there is high-grade hydroureteronephrosis down to a distal ureteral stone. [facility] History I have reviewed the patient's past medical history: Yes Medical History: Reports:: Deep Vein Thrombosis, Gastroesophageal Reflux Disease(GERD), Hiatal Hernia Denies:: Diabetes Mellitus Type 1, Diabetes Mellitus Type 2, Hypertension *Have you ever received a pneumonia vaccine?: No *Have you received a flu vaccine this season?: Yes Other Medical History: Reports: Sinus Problems Laterality Cases: Bilateral: Tonsillectomy Other Surgeries: Yes: , Other (Gastric bypass) Amputation: No Fractures: No - *Social History Smoking Status: Never smoker Alcohol Intake: never *Occupational Status:: employed Housing: house *Travel in the last 8 weeks: None Family Hx:: No significant family history Review of Systems - Review of Systems Review of systems:: pertinent systems reviewed and negative unless documented below - Constitutional Reports chills, Reports weakness - Eyes Denies blurry vision - ENT Denies abnormal hearing, Denies poor balance - *Cardiovascular Denies chest pain, Denies irregular heart rhythm - *Respiratory Denies change in phlegm color, Denies chest congestion - *Gastrointestinal Reports abdominal pain, Reports nausea - *Genitourinary Denies abnormal periods, Denies abnormal vaginal bleeding - *Musculoskeletal Reports back pain, Reports muscle weakness - Integumentary/Breasts Denies hair loss, Denies changing lesions - *Neurologic Denies abnormal walking, Denies headache(s) - Psychiatric Denies abnormal sleep pattern - Endocrine Denies cold intolerance - Hematologic/Lymphatic Denies easy bleeding - Allergic/Immunologic Denies GI upset with certain foods Meds Home Medications Medication Instructions Recorded Confirmed Type famotidine 20 mg tablet PO 11/30/19 12/06/20 History omeprazole 20 mg capsule,delayed 20 mg PO cap 12/06/20 12/06/20 History release Brompheniramine/Pseudoephed/Dm 5 ml PO Q6HP PRN #240 ml 02/15/21 Rx [Bromfed Dm Cough Syrup] predniSONE [Deltasone 10mg tablet] 10 mg PO BID 3 Days #6 tab 02/15/21 Rx Allergies Allergy/AdvReac Type Severity Reaction Status Date / Time No Known Allergies Allergy Verified 12/06/20 08:43 Exam Vital signs and Labs for Last 24 Hours: Temp Pulse Resp BP Pulse Ox 98.7 F 84 24 127/90 98 03/10/21 10:25 03/10/21 10:25 03/10/21 10:25 03/10/21 10:25 03/10/21 10:25 Laboratory Results - last 24 hr 03/10/21 10:36: Urine Color Yellow, Urine Appearance Clear, Urine pH 6.0, Ur Specific [place] >= 1.030, Urine Protein 2+, Urine Glucose (UA) Negative, Urine Ketones Negative, Urine Blood 3+, Urine Nitrate Negative, Urine Bilirubin Negative, Urine Urobilinogen 0.2, Ur Leukocyte Esterase Negative, Urine RBC 10-20, Urine WBC 3-5, Ur Squamous Epith Cells 5-10, Urine Bacteria 1+ 03/10/21 10:36: WBC 7.0, RBC 4.77, Hgb 14.2, Hct 42.4, MCV 89.0, MCH 29.8, MCHC 33.5, RDW 13.6, Plt Count 225, MPV 9.4, Neut % (Auto) 60.2, Lymph % (Auto) 27.9, [place] % (Auto) 6.8, Eos % (Auto) 3.8, Baso % (Auto) 1.3, Neut # (Auto) 4.2, Lymph # (Auto) 1.9, [place] # (Auto) 0.5, Eos # (Auto) 0.3, Baso # (Auto) 0.1 03/10/21 10:36: Urine HCG, Qual Negative 03/10/21 10:36: Sodium 138, Potassium 3.8, Chloride 105, Carbon Dioxide 30, Anion Gap 6.8, BUN 14, Creatinine 0.70, Estimated GFR 95, Est GFR ( Amer) 115, Glucose 89, Calcium 9.3, Total Bilirubin 0.4, AST 31, ALT 19, Alkaline Phosphatase 79, Total Protein 7.3, Albumin 4.3, Globulin 3.0, Albumin/Globulin Ratio 1.4, Lipase 130 I & O for Last 24 ho
--- NOTE | 2021-03-10 16:47 | PC.NURSE ---
Surgery team at bedside
[2021-03-10 16:56] LABS: Coronavirus 19, PCR Not Detected (NotDetected); Influenza A, PCR Not Detected (NotDetected); Influenza B, PCR Not Detected (NotDetected)
--- NOTE | 2021-03-10 18:00 | XR_ITS ---
PROCEDURE: XR KUB CLINICAL INDICATION: LEFT URETEROSCOPY WITH STENT PLACEMENT COMPARISON: CT CT ABDOMEN PELVIS WO CON from 03/10/2021 FINDINGS: Fluoroscopy time: 8 seconds Images submitted with the C-arm demonstrates placement of a left ureteral stent with the proximal aspect overlying the left upper quadrant in the distal aspect overlying the left pelvic region. A calcific density is noted over the distal aspect of the left ureteral stent likely representing a phleboliths. There is an IUD in place. IMPRESSION: Status post left ureteroscopy and stent placement with fluoroscopic assistance Dictated by: Abisai Moya MD 03/13/2021 11:48 Abisai Moya MD in [facility] 03/13/2021 11:48
--- NOTE | 2021-03-10 18:13 | P.OP_ITS ---
Date of procedure: 03/10/21 Pre-op Diagnosis:: Left ureteral stone with hydroureteronephrosis Post-op Diagnosis:: Same Procedure performed:: Left ureteroscopy with dilation of ureteral orifice, laser lithotripsy, stone extraction and left stent placement Surgeon:: Neville Zamorano MD [employer] QUALITY INSTRUMENT SPECIALIST:: Noel Cornejo Anesthesia: LMA Estimated blood loss (mL): 0 Clinical Note:: 35-year-old white female with an obstructing distal left ureteral stone and resulting left hydroureteronephrosis presents for urologic management Operative findings:: 6 mm distal left ureteral stone with obstruction Operative note:: Patient taken to the operating room after informed consent was obtained. Placed on the operating table in the supine position and general anesthesia administered. Preoperative antibiotics and sequential compression devices placed. Patient was prepped and draped in the standard surgical fashion and placed into the dorsal lithotomy position. The 22 Ukrainian cystoscope passed into the urethra and into the bladder. The bladder was examined in a systematic fashion. There is no evidence of mucosal abnormalities. The ureteral orifices in their normal anatomic position. A guidewire was passed into the left ureteral orifice and by the stone and into the left renal pelvis. The distal ureter appeared stenotic so the 4 x 15 mm UroMax balloon dilator was passed over the guidewire and the distal ureter dilated to 12 mila for 2 minutes. The balloon then deflated and removed. The cystoscope removed and the semirigid ureteroscope passed into the bladder and into the left ureter and up to the level of the stone. A 220 nm laser fiber was used to fragment the stone into smaller pieces and all the fragments were removed with use of a 1.9 Ukrainian basket. The ureteroscope removed and the cystoscope was replaced over the guidewire and a 4.8 x 24 Ukrainian stent was passed over the guidewire. The gu idewire was removed and the stent showed a good curl proximally and distally. The string was left on for later removal. Urojet placed into the urethra for comfort measures. Patient tolerated the procedure well there are no complications. Condition: stable Disposition: PACU Specimens:: Stone fragment Complications:: None
--- NOTE | 2021-03-13 11:10 | P.PN_ITS ---
[facility] Anesthesia Record Part II Discharge Time: 18:25 Destination: Surgical Day Care (OP Surgery) PACU nurse assessment reviewed?: Yes Patient Condition:: Good Anesthesia Complications:: None Swallowing reflex intact?: Yes Cyanosis?: No Blood Pressure: 123/74 Pulse Rate: 88 Temperature: 97.8 F Mental Status: Alert & Oriented Pain level:: 0 Nausea and/or vomitting:: None Intake, IV Amount: 0
[2021-03-13 11:11] VITALS: BP 123/74; PULSE 88; TEMP 36.6
[2021-06-02 20:55] LABS: Ca oxalate dihydrate 70; Size 1X1
== END 2021-03-10 16:50 | disposition home or self-care (01) ==
PROVIDERS: Urology; Emergency Provider Emergency Medicine; PCP Nurse Practitioner Family
PROC: (CPT 52352; principal; 2021-03-10 17:00)
DX: N13.2 Hydronephrosis with renal and ureteral calculous obstruction (principal); N30.01 Acute cystitis with hematuria; K21.9 Gastro-esophageal reflux disease without esophagitis
CPT/HCPCS: 50080; 74018; 74176; 80053; 81001; 81025; 82370; 83690; 85025; 96365; 96375; 96376; 99284; C2617; C9803; J2405; U0003; U0005

== ENCOUNTER → 2021-04-28 16:25 | Outpatient (CLI) | payer BC, SELFPAY | PROVIDERS: Visit Provider Nurse Practitioner | DX: Z20.822 Contact with and (suspected) exposure to COVID-19 (principal) | CPT/HCPCS: C9803; U0003; U0005 ==

== ENCOUNTER → 2021-06-28 14:30 | Outpatient (CLI) | payer BC, SELFPAY ==
--- NOTE | 2021-06-28 14:34 | XR_ITS ---
FINAL REPORT TECHNIQUE: Chest PA & Lateral CLINICAL HISTORY: CHEST TIGHTNESS, POST COVID-19 CONDITION COMPARISON: February 25, 2021 FINDINGS: 2 views of the chest were performed. The heart size is normal. The mediastinum is within normal limits. There is no acute cardiopulmonary process. There are no pleural effusions. There is no pneumothorax. The bony thorax appears intact. IMPRESSION: No acute cardiopulmonary process. Reviewed, Interpreted and Dictated by Tomy Connolly MD Transcribed by Esperanza Henderson Authenticated by Tomy Connolly MD on 06/28/2021 03:23:24 PM [facility]
== END ==
PROVIDERS: PCP Nurse Practitioner Family; Visit Provider Nurse Practitioner Family
DX: R07.89 Other chest pain (principal); U09.9 Post COVID-19 condition, unspecified
CPT/HCPCS: 71046

== ENCOUNTER 2021-07-16 19:43 | Emergency (ER) | payer BC, SELFPAY ==
[2021-07-16 19:46] VITALS: BP 141/90; RESP 17; TEMP 36.5; O2SAT 97; BMI 31.1
--- NOTE | 2021-07-16 19:50 | XR_ITS ---
PROCEDURE INFORMATION: Exam: XR Chest Exam date and time: 07/16/2021 7:50 PM Age: 36 years old Clinical indication: Sternal or substernal pain; Additional info: Chest pain TECHNIQUE: Imaging protocol: XR of the chest. Views: 2 views. COMPARISON: CR XR CHEST 2V 06/28/2021 2:36 PM FINDINGS: Lungs: Unremarkable. No consolidation. Pleural spaces: Unremarkable. No pleural effusion. No pneumothorax. Heart/Mediastinum: Unremarkable. No cardiomegaly. Bones/joints: Unremarkable. IMPRESSION: No acute findings.
--- NOTE | 2021-07-16 19:50 | ECG_ITS ---
APPROVED REPORT Exam: Resting ECG HR:72 bpm ECG Measurements Heart Rate 72 AXES [place] 191 P 34 QRSd 98 QRS 45 QT 381 T 50 QTc 405 Conclusion SINUS RHYTHM NORMAL ECG UNCONFIRMED REPORT Electronically signed by : Jimenez Mota MD 07/17/2021 15:58:49
[2021-07-16 20:00] LABS: Basophils # 0.2 K/mm3 (0-0.2); Basophils % 3.2 % (0.1-2.0); Eosinophils # 0.1 K/mm3 (0.0-0.4); Eosinophils % 1.8 % (0.1-12.0); Hematocrit 43.6 % (37.0-47.0); Hemoglobin 14.4 g/dL (12.2-16.2); Lymphocytes # 2.2 K/mm3 (0.7-4.5); Lymphocytes % 30.3 % (10-50); Mean Corpuscular HGB Conc 33.2 g/dL (31.8-35.4); Mean Corpuscular Volume 90.4 fl (81-99); Mean Platelet Volume 8.8 fl (7.4-10.4); Monocytes # 0.4 K/mm3 (0.1-1.0); Monocytes % 5.4 % (1.7-9.3); Neutrophils # 4.4 K/mm3 (1.8-7.8); Neutrophils % 59.4 % (37.0-80.0); Platelet Count 209 K/mm3 (142-424); Red Blood Count 4.82 M/mm3 (4.20-5.40); Red Cell Distribution Width 13.8 % (11.5-17.5); White Blood Count 7.4 K/mm3 (4.8-10.8)
[2021-07-16 20:13] LABS: Anion Gap 7.5 mEq/L (5-15); Blood Urea Nitrogen 16 mg/dl (7-17); Calcium 8.8 mg/dl (8.4-10.2); Carbon Dioxide 31 mmol/L (22.0-30.0); Chloride 105 mmol/L (98-107); Creatinine Clearance Estimated 188 mL/min (50-200); Estimated Glomerular Filt Rate 139 ml/min (>60); GFR (African American) 168 ML/MIN (>60); Glucose 104 mg/dl (74-100); Potassium 3.5 mmoL/L (3.5-5.1); Sodium 140 mmol/L (136-145)
[2021-07-16 20:14] VITALS: BP 137/89; PULSE 72; O2SAT 99
[2021-07-16 20:19] LABS: Activated Partial Thrombo Time 25.4 seconds (22.8-30.6); INR 0.96 (0.9-1.1); Prothrombin Time 10.9 seconds (10.1-12.5)
[2021-07-16 20:26] LABS: Troponin I < 0.01 ng/ml (0.00-0.034)
[2021-07-16 20:40] LABS: D-Dimer 0.71 ug/mL (0.0-0.5)
--- NOTE | 2021-07-16 22:34 | CT_ITS ---
PROCEDURE INFORMATION: Exam: CTA Chest With Contrast Exam date and time: 07/16/2021 11:11 PM Age: 36 years old Clinical indication: Sternal or substernal pain; Patient HX: D dimer 0.71; Additional info: Chest pain, elevated d dimer TECHNIQUE: Imaging protocol: Computed tomographic angiography of the chest with contrast. 3D rendering (Not supervised by radiologist): MIP and/or 3D reconstructed images were created by the technologist. Radiation optimization: All CT scans at this facility use at least one of these dose optimization techniques: automated exposure control; mA and/or kV adjustment per patient size (includes targeted exams where dose is matched to clinical indication); or iterative reconstruction. Contrast material: ISOVUE 370; Contrast volume: 75 ml; Contrast route: INTRAVENOUS (IV); COMPARISON: CT ANGIO CHEST 10/21/2019 6:24 PM FINDINGS: Pulmonary arteries: Demonstrate homogeneous enhancement with no filling defects to suggest a recent pulmonary embolism. Aorta: Unremarkable. No aortic aneurysm. No aortic dissection. Lungs: Subcentimeter calcified granulomas. No consolidations identified. Pleural spaces: Unremarkable. No pneumothorax. No pleural effusion. Heart: Unremarkable. No cardiomegaly. No pericardial effusion. Lymph nodes: Unremarkable. No enlarged lymph nodes. Bones/joints: Unremarkable. No acute fracture. Soft tissues: Unremarkable. IMPRESSION: 1. No evidence of PE. 2. Subcentimeter calcified granulomas. No consolidations identified.
[2021-07-16 23:44] LABS: Troponin I < 0.01 ng/ml (0.00-0.034)
--- NOTE | 2021-07-17 00:12 | HMH.EDGENADL ---
ED Disposition Clinical Impression: Acute chest pain Disposition: Home, Self-Care Condition on Discharge: Good Instructions: DI for Atypical Chest Pain Referrals: Aster Mayes PA [Primary Care Provider] - - Critical Care Critical Care Time: No Attestation: On 07/16/21, the high probability of a clinically significant, sudden or life threatening deterioration of the following system(s) required my full and direct attention, intervention and personal management. The time I documented below is in addition to time spent performing reported procedures but includes the following listed in this critical care notation. Medical Decision Making - Mau Inquiry Pt receiving controlled substance: No Vital Signs: 07/16/21 19:46 07/16/21 20:14 07/17/21 00:14 Temperature 97.7 F 97.7 F Temperature Source Oral Pulse Rate 72 69 Respiratory Rate 17 18 Blood Pressure 137/89 116/79 Blood Pressure [Right Arm] 141/90 H Blood Pressure Mean [Right Arm] 107 Blood Pressure Source [Right Arm] Automatic Cuff Blood Pressure Position [Right Arm] Sitting 02 Sat by Pulse Oximetry 97 99 Oxygen Delivery Method Room Air Room Air - Lab Data Lab Results 07/16/21 19:51: WBC 7.4, RBC 4.82, Hgb 14.4, Hct 43.6, MCV 90.4, MCH 30.0, MCHC 33.2, RDW 13.8, Plt Count 209, MPV 8.8, Neut % (Auto) 59.4, Lymph % (Auto) 30.3, Hidalgo % (Auto) 5.4, Eos % (Auto) 1.8, Baso % (Auto) 3.2 H, Neut # (Auto) 4.4, Lymph # (Auto) 2.2, Hidalgo # (Auto) 0.4, Eos # (Auto) 0.1, Baso # (Auto) 0.2 07/16/21 19:51: PT 10.9, INR 0.96, APTT 25.4 07/16/21 19:51: Sodium 140, Potassium 3.5, Chloride 105, Carbon Dioxide 31 H, Anion Gap 7.5, BUN 16, Creatinine 0.50 L, Estimated Creat Clear 188, Estimated GFR 139, Est GFR ( Amer) 168, Glucose 104 H, Calcium 8.8, Troponin I < 0.01 07/16/21 19:51: D-Dimer 0.71 H 07/16/21 23:10: Troponin I < 0.01 Result diagrams: 07/16/21 19:51 07/16/21 19:51 Orders (Tests/Meds): ED MEDICATIONS Discontinued Medications Generic Name Dose Route Start Last Admin Trade Name Belem PRN Reason Stop Dose Admin Iopamidol 100 ml 07/16/21 23:23 07/16/21 23:24 Iopamidol-370 (76%);100ml Bottle IV 07/16/21 23:24 100 ml ONCE ONE Administration Sodium Chloride 50 ml 07/16/21 23:23 07/16/21 23:23 0.9 % Sodium Chloride 50 Ml Vial IV 07/16/21 23:24 50 ml ONCE ONE Administration Sodium Chloride 10 ml 07/16/21 23:23 07/16/21 23:24 Sodium Chloride 0.9% 10ml Syr (Rad Only) IV 07/16/21 23:24 10 ml ONCE ONE Administration Medical Decision Narrative: DDx includes but not limited to PE, ACS, intrathoracic mass, muscular strain. HDS, NAD, well appearing, on room air. EKG shows sinus rhythm. no stemi. Troponin wnl. D dimer 0.7. CXR without acute findings. CT PE obtained without evidence of PE. Patient states pain has gone away and come back several times in ED but she states pain is gone now on reassessment. She is resting comfortably, on room air, HDS. She is stable for discharge. Given strict ED return precautions. General Adult HPI - General Chief complaint: Chest Pain Stated complaint: chest pain Time Seen by Provider: 07/16/21 20:00 Mode of Arrival: Family Vehicle Limitations: No Limitations Description of Symptoms (Recalled from ER Triage Doc. by RN): pt presents with complaints of anterior upper chest wall discomfort. denies n/v/d. states it doesn't worsen or improve with change of position. History of having had PE's 3 years ago after giving . Pt is a . No other diagnosed comorbidities. - History of Present Illness HPI narrative: 36 yo female w/ hx remote PE, presents for evaluation of chest pain. patient reports she has had 1 day of acute worsening chest pain that feels sharp and pressure like in nature across bilateral upper chest without radiation. Worsens when she moves sometimes, does not change with pressure applied to chest or with deep breathing. States she does not remember if thi
[2021-07-17 00:14] VITALS: BP 116/79; PULSE 69; RESP 18; TEMP 36.5; O2SAT 98
== END 2021-07-17 00:16 | disposition home or self-care (01) ==
PROVIDERS: Emergency Medicine; Emergency Provider Student in an Organized Health Care Education/Training Program; PCP Nurse Practitioner Family
DX: R07.9 Chest pain, unspecified (principal); K21.9 Gastro-esophageal reflux disease without esophagitis; K44.9 Diaphragmatic hernia without obstruction or gangrene; Z86.711 Personal history of pulmonary embolism; Z87.442 Personal history of urinary calculi
CPT/HCPCS: 71046; 71275; 80048; 84484; 85025; 85378; 85610; 85730; 93005; 99285; Q9967

== ENCOUNTER → 2021-08-08 08:00 | Outpatient (CLI) | payer BC, SELFPAY ==
--- NOTE | 2021-08-08 08:00 | NM_ITS ---
APPROVED REPORT Exam: Nuclear Stress Test Indication: Chest pain, Abnormal EKG, Family history Patient Location: Outpatient Stress Tech: Chrissy Weller [place] Tech:Jacque Vang, ARRT, RT (R)(N) Ht: 5 ft 2 in Wt: 170 lbs Bra Size: 36D HR: 75 bpm BP: 127/81 mmHg BSA: 1.78 m2 BMI: 31.0 History: Chest pain, Abnormal EKG, Family history Procedure: Patient exercised on Geovani protocol 10:30 minutes and sec, resting heart rate 75 bpm, resting blood pressure 127/81 mmHg, with exercise maximum heart rate achived was 162 bpm which is 89 % of the maximum predicted heart rate and blood pressure was 151/61 mmHg. Test was stopped due to SOB. Patient denied any complaint of chest pain. Patient has good exercise capacity, achieved 12.8 METs of workload on treadmill, the blood pressure response to exercise was Adequate. Electrocardiogram Resting electrocardiogram shows sinus rhythm with exercise there is less than 1.[address] segment depression noted from the baseline EKG. The EKG portion of the exercise Myoview is negative for ischemia. Cardiac Stress and Resting SPECT Images: Cardiac Stress and Resting SPECT images were obtained using technetium 99m Myoview 31.5 mCi stress and 9.73 mCi at rest. Gated SPECT for analysis of segmental wall motion and calculation of the ejection fraction is also done. Prone images were also obtained. Cardiac stress and resting SPECT images show uniform myocardial activity without segmental perfusion abnormality, computer derived ejection fraction is 61% with no regional wall motion abnormality, right ventricle is normal size and contractility. Conclusion: 1. The EKG portion of the exercise Myoview is negative for ischemia, patient has good exercise capacity achieved 12.8 METs of workload on treadmill, the blood pressure response to exercise was adequate, there was no exercise-induced chest discomfort. 2. No scintigraphic evidence of reversible ischemia seen, computer derived ejection fraction 61% with no regional wall motion abnormality, right ventricle is normal size and contractility. 3. Normal exercise Myoview study. Electronically signed by : Johnson Mora MD 08/10/2021 06:21:15
--- NOTE | 2021-08-08 08:49 | CA_ITS ---
APPROVED REPORT EXAM: Comprehensive 2D, Doppler, and color-flow Echocardiogram Stripping Shovel Operator: Radha Meng RVT Ht: 5 ft 2 in Wt: 173lbs BSA: 1.80 BP: 116/65 mmHg Indications: CP,ABN EKG,GERD,WONG,HX GASTRIC WT LOSS SURGERY 2D Dimensions LVOT 1.99 cm (M/F) 1.5-2.5 LA Volume 48.00 mL LA Volume Index 26.81 mL/m2 (M/F) 16-34 M-Mode Dimensions RVDd 2.59 cm (0.9-2.6) LA Diam 3.46 cm (1.9-4.0) LVDd 3.94 cm (3.5-5.7) Ao Diam 2.66 cm (2.0-3.7) LVDs 2.56 cm (3.5-5.7) IVSd 1.08 cm (0.6-1.1) PWd 0.66 cm (0.6-1.1) EF (Teich) 64.90% FS 35.00% EDV (Teich) 67.50 mL TAPSE 2.22 (<1.7) ESV (Teich) 23.70 mL LV Diastology E Decel Time 143.00 (160-240 msec) E/A Ratio 1.5 MED E' 13.30 (< 7 cm/sec) E'/MED E' Ratio 6.65 (>14) LAT E' 18.30 (<10 cm/sec) E/LAT E' Ratio 4.84 (>14) Aortic Valve AO Peak GR. 5.60 mmHg Mitral Valve MV E Max Jay. 88.00 (40-130 cm/s) MV A Velocity 57.00 (40-130 cm/s) E/A Ratio 1.57 MV Decel. Time 143.00 (160-240 ms) MV PHT 42.00 ms Pulmonary Valve PV Peak Velocity 73.00 (50-150 cm/s) Tricuspid Valve TR P. Velocity 210.00 cm/s RAP Estimate 10.00 mmHg RVSP 27.70 mmHg Left Ventricle Left atrium is normal size, left ventricle is normal size, there is no concentric left ventricular hypertrophy, estimated ejection fraction 55% with no regional wall motion abnormality, diastolic parameters are within normal range. Right Ventricle Right atrium and right ventricle are normal size and contractility. Aortic Valve Aortic valve is grossly normal, there is no aortic stenosis or aortic insufficiency. Mitral Valve Mitral valve grossly normal, there is trace mitral regurgitation. Tricuspid Valve Tricuspid valve grossly normal, there is trace tricuspid regurgitation, tricuspid regurgitation jet velocity is inadequate for calculation of the right ventricular systolic pressure. Pulmonic Valve Pulmonic valve is poorly visualized. Great Vessels Aortic root is normal size. Inferior vena cava is normal size with normal inspiratory collapse. Pericardium No significant pericardial effusion noted. Conclusion 1. Normal left ventricular size, preserved left ventricular systolic function, visually estimated ejection fraction 55% with no regional wall motion abnormality, diastolic parameters are within normal range. 2. Trace mitral and tricuspid regurgitation. 3. No significant pericardial effusion noted. 4. Inferior vena cava is normal size with normal spectral collapse. Electronically signed by : Johnson Mora MD 08/08/2021 21:05:43
--- NOTE | 2021-08-08 09:52 | CA_ITS ---
APPROVED REPORT Exam: Exercise Treadmill Technologist: Chrissy Estrada, Ht: 5 ft 2 in Wt: 173 lbs BSA: 1.80 m2 HR: 67 bpm BP: 120/77 mmHg Stress Test Details Test: Geovani HR Resting HR: 75 bpm Max Heart Rate (APMHR): 183.821428 bpm Max HR Achieved: 162 bpm Target HR (85% APMHR): 155.512798 bpm % of APMHR: 88.52 Recovery HR: 91 bpm BP Resting BP: 127/81 mmHg Max BP: 151/61 mmHg Recovery BP: 118.0/56.0 mmHg ECG Resting ECG: NSR, normal Clinical Exercise duration: 10:30 min Highest Stage Achieved: 4 Exercise capacity: 12.8 METs Stress ECG Conclusion Exercised 10:30 into Stage 4 Geovani Protocol. Max HR: 162 % of PM: 89% Max BP: 151/61 METs: 12.8 Test stopped due to: SOA, Fatigue Symptoms: No CP. Arrhythmias/Ectopy: None ST-T Changes: Normal ST response to exercise Conclusion: Normal GXT. Myoview images reported separately. Test Summary REST . . . . . . . Sitting REST . . . . . . . Standing REST 03:55 0.0 0.0 75 . 127/ 81 . . Stage 1 01:00 10.0 1.7 88 . . . . Stage 1 02:00 10.0 1.7 92 . . . . Stage 1 03:00 10.0 1.7 93 . 124/ 65 . . Stage 2 01:00 12.0 2.5 98 . . . . Stage 2 02:00 12.0 2.5 104 . . . . Stage 2 03:00 12.0 2.5 112 . 124/ 60 . . Stage 3 01:00 14.0 3.4 117 . . . . Stage 3 02:00 14.0 3.4 123 . . . . Stage 3 03:00 14.0 3.4 133 . 130/ 70 . . Stage 4 01:00 16.0 4.2 154 . . . . Stage 4 01:30 16.0 4.2 161 . . . Stop exercise at 10:30 RECOVERY 01:00 0.0 0.0 129 . . . . RECOVERY 02:00 0.0 0.0 115 . 136/ 70 . . RECOVERY 03:00 0.0 0.0 101 . 151/ 61 . . RECOVERY 04:00 0.0 0.0 99 . 110/ 57 . . RECOVERY 05:00 0.0 0.0 91 . 110/ 57 . . RECOVERY 05:34 0.0 0.0 92 . 118/ 56 . . Electronically signed by : Johnson Mora MD 08/09/2021 06:52:21
== END ==
PROVIDERS: PCP Nurse Practitioner Family; Visit Provider Internal Medicine
DX: R07.9 Chest pain, unspecified (principal); R51.9 Headache, unspecified; R94.31 Abnormal electrocardiogram [ECG] [EKG]
CPT/HCPCS: 78452; 93017; 93306; A9502

== ENCOUNTER → 2021-08-21 07:59 | Outpatient (CLI) | payer BC, SELFPAY ==
--- NOTE | 2021-08-21 08:02 | FL_ITS ---
FINAL REPORT CLINICAL HISTORY: . chest pain and burning, hx gastric bypass. 1:59 fluoro time FINDINGS: UPPER GI EXAM HISTORY: History of gastric bypass. Epigastric pain with burning. PROCEDURE: The patient ingested barium. Spot and overhead films were obtained. FINDINGS: Examination is limited as the patient was unable to tolerate large boluses of barium. In addition, the patient refused further barium for small bowel follow-through. No esophageal stricture is identified. No gastroesophageal reflux was demonstrated during the exam. The patient is status post gastric bypass. The pouch empties appropriately. No GG fistula is identified. The proximal jejunal folds appeared thickened and irregular. FLUOROSCOPY TIME: 1 minute 59 seconds. 11 radiographs were obtained. IMPRESSION: . Postoperative changes of gastric bypass. Thickened irregular proximal jejunal folds. Endoscopic correlation recommended. Films reviewed , interpreted and dictated by Dr. Frost. Transcribed by Pro Gomez PA-C. Reviewed, Interpreted and Dictated by Niels Frost III, MD Transcribed by CATRACHITO Fallon Authenticated by Niels Frost III, MD on 08/21/2021 10:12:49 AM [facility]
== END ==
PROVIDERS: PCP Nurse Practitioner Family; Visit Provider Nurse Practitioner Family
DX: R10.13 Epigastric pain (principal); R13.10 Dysphagia, unspecified
CPT/HCPCS: 74240

== ENCOUNTER → 2021-11-06 08:09 | Outpatient (CLI) | payer BC, SELFPAY ==
[2021-11-06 08:31] LABS: Hematocrit 41.2 % (37.0-47.0); Hemoglobin 13.4 g/dL (12.2-16.2); Mean Corpuscular HGB Conc 32.4 g/dL (31.8-35.4); Mean Corpuscular Hemoglobin 29.2 pg (27.0-31.2); Mean Corpuscular Volume 89.9 fl (81-99); Platelet Count 216 K/mm3 (142-424); Red Blood Count 4.58 M/mm3 (4.20-5.40); Red Cell Distribution Width 13.4 % (11.5-17.5); White Blood Count 5.6 K/mm3 (4.8-10.8)
[2021-11-06 09:09] LABS: Chloride 105 mmol/L (98-107); Sodium 138 mmol/L (136-145)
[2021-11-06 09:11] LABS: Alanine Aminotransferase 18 U/L (12-78); Alkaline Phosphatase 77 U/L (38-126); Aspartate Amino Transferase 27 U/L (14-36); Bilirubin,Total 0.4 mg/dl (0.2-1.3); Blood Urea Nitrogen 13 mg/dl (7-17); Carbon Dioxide 30 mmol/L (22.0-30.0); Estimated Glomerular Filt Rate 112 ml/min (>60); GFR (African American) 136 ML/MIN (>60); Iron 91 ug/dL (37-170)
[2021-11-06 09:12] LABS: Albumin Level 3.9 g/dl (3.5-5.0); Albumin/Globulin Ratio 1.4 (1.1-1.8); Chol/HDL Ratio 3.1 (1-3.5); Cholesterol 138 mg/dl (140-200); Globulin 2.8 g/dL (1.3-3.2); Glucose 101 mg/dl (74-100); HDL Cholesterol 44 mg/dl (40-60); Magnesium 1.5 mg/dl (1.6-2.3); Total Protein,Serum 6.7 g/dl (6.3-8.2); Triglycerides 62 mg/dl (30-150); VLDL Cholesterol 12 mg/dL (0-40)
[2021-11-06 09:23] LABS: Direct LDL Cholesterol 77.68 mg/dL (100-129)
[2021-11-06 09:48] LABS: Ferritin 10.2 ng/ml (6.24-137)
[2021-11-06 09:54] LABS: 25-OH Vitamin D, Total 119 ng/mL (30-100)
[2021-11-06 10:14] LABS: Intact Parathyroid Hormone 76.6 pg/mL (7.5-53.5)
[2021-11-07 08:15] LABS: Prealbumin 19 mg/dL (14-35)
[2021-11-08 14:16] LABS: Methylmalonic Acid 153 nmol/L (0-378)
[2021-11-10 11:12] LABS: Vitamin B1 160.6 nmol/L (66.5-200.0)
[2021-11-10 17:09] LABS: Vitamin A 30.7 ug/dL (18.9-57.3); Vitamin E Alpha Tocopherol 7.8 mg/L (5.9-19.4); Vitamin E Gamma Tocopherol 0.6 mg/L (0.7-4.9)
== END ==
PROVIDERS: Visit Provider Nurse Practitioner Family
DX: E66.1 Drug-induced obesity (principal); Z13.21 Encounter for screening for nutritional disorder; E67.3 Hypervitaminosis D
CPT/HCPCS: 36415; 80053; 80061; 82131; 82306; 82728; 82746; 83036; 83540; 83735; 83970; 84100; 84134; 84425; 84443; 84446; 84590; 85014; 85018; 85048; 85049

== ENCOUNTER → 2021-11-19 17:01 | Outpatient (CLI) | payer BC, SELFPAY | PROVIDERS: PCP Nurse Practitioner Family; Visit Provider Nurse Practitioner | DX: Z11.1 Encounter for screening for respiratory tuberculosis (principal) | CPT/HCPCS: 86580 ==

== ENCOUNTER 2022-02-16 16:20 | Emergency (ER) | payer BC, SELFPAY ==
[2022-02-16 17:00] VITALS: BP 117/76; PULSE 72; RESP 18; TEMP 36.8; O2SAT 98; BMI 28.4
[2022-02-16 17:11] LABS: Apearance,Urine Clear (Clear); Color,Urine Yellow (Yellow)
[2022-02-16 17:12] LABS: Bilirubin,Urine Negative (Negative); Blood, Urine Trace (Negative); Glucose,Urine (UA) Negative (Negative); Ketones,Urine Negative (Negative); PH,Urine 6.5 (5.0-8.5); Protein,Urine Negative (Negative); Specific Gravity, Urine 1.015 (1.005-1.030); UTC Leukocyte Esterase,Urine Trace (Negative); UTC Nitrate,Urine Negative (Negative); Urobilinogen,Urine 0.2 EU/dl (0.2)
--- NOTE | 2022-02-16 17:16 | EXP.UTC ---
Discharge Plan Disposition Patient Disposition: Home, Self-Care Condition: Good Prescriptions Prescriptions: New cefdinir 300 mg capsule 300 mg PO BID 7 Days Qty: 14 0RF methocarbamol 500 mg tablet 500 mg PO TID PRN (Reason: muscle spasm) Qty: 30 0RF methylprednisolone [Medrol (Mateo)] 4 mg tablets,dose pack See Rx Instructions .Route .COMPLEX 6 Days Qty: 21 0RF Rx Instructions: taper pack; Referrals Follow up/Referrals: Provider,Referral, MD [Primary Care Provider] - See instructions Activity Restrictions/Add. Instructions Additional Instructions/Restrictions: *Increase fluids. Water not Soda or Tea *Start antibiotic immediately and be sure to take as ordered for the FULL length of time although you should start to see improvement over the next 48 hours *Be SURE to follow up anytime for new or worsening symptoms with your family doctor. AND in 48 hours for urine culture results with your family doctor, if you do not have a doctor then you may call back to the [facility] for urine culture results and further treatment. We do recommend that you choose and establish care with a Primary Care Physician. ?AND follow up with them ?in 10-14 days to repeat UA to ensure infection is resolved and blood no longer present *Be sure to let your PCP know that we sent urine cultures from the [facility] so they can follow up to ensure that you area the on the correct antibiotic Call your doctor office and make appointment for 48 hours (2 days from today) ?to follow up and get the results of your urine culture and further treatment *Ibuprofen luis daniel 6 hours with meal as needed for pain/inflammation *Not additional anti-inflammatory like motrin, aleve, advil with the above amount of ibuprofen. You can still take Tylenol every 4 hours as needed if you need something else for pain *Ice 20 minutes every 2 hours for the first 48 hours after the initial injury followed by moist heat every 20 minutes 3-4 times a day to affected area *Muscle relaxer every 8 hours as needed for muscle spasms but remember, it WILL cause drowsiness You cannot take it and drive, operate machinery or care for small children. *Keep this area active, no movement leads to more stiffness, However take it easy and avoid heavy lifting pushing or pulling *Follow up with you family doctor if no improvement for further treatment Clinical Impressions Clinical Impression: Urinary tract infection Instructions Patient Instructions: DI for Urinary Tract Infection (UTI), DI for Muscle Spasm Discharge ED Provider: Maren Salinas [facility] – [place] HPI General Stated complaint: pain in lower right back Time Seen by Provider: 02/16/22 17:16 History of Present Illness Provider Complaint: Patient states that she has been having pain in her right lower back area States that she hasnt done anything that she is aware of to hurt it States that she hasnt had any fever States that pain is worse at times with certain ways she moves Related Data Previous Rx's Medication Instructions Recorded cefdinir 300 mg capsule 300 mg PO BID 7 days #14 caps 02/16/22 methocarbamol 500 mg tablet 500 mg PO TID PRN muscle spasm #30 02/16/22 tabs methylprednisolone 4 mg tablets in See Rx Instructions .Route 02/16/22 a dose pack (Medrol (Mateo)) .COMPLEX 6 days #21 tabs Allergies Allergy/AdvReac Type Severity Reaction Status Date / Time No Known Allergies Allergy Verified 07/19/21 11:36 [facility] Medical History (Updated 02/16/22 @ 17:28 by Maren Salinas APRN) Kidney stone Surgical History (Updated 02/16/22 @ 17:18 by Clara Brandt, RN) History of section History of tonsillectomy Social History (Updated 02/16/22 @ 17:18 by Clara Brandt, RN) Smoking Status: Never smoker alcohol intake: never current occupational status: employed Travel in the last 8 weeks: Inside the [place] household members: spouse and family housing: house ROS Obtained: Yes All syst
[2022-02-16 17:45] VITALS: BP 117/76; PULSE 72; RESP 18; TEMP 36.8; O2SAT 98
== END 2022-02-16 17:48 | disposition home or self-care (01) ==
PROVIDERS: Emergency Provider Nurse Practitioner
DX: N39.0 Urinary tract infection, site not specified (principal)
CPT/HCPCS: 81003; 87086; 99212; G0463

== ENCOUNTER 2022-04-09 10:42 | Emergency (ER) | payer BC, SELFPAY ==
[2022-04-09 11:50] VITALS: BP 129/86; PULSE 71; RESP 19; TEMP 36.7; O2SAT 99; BMI 30.4
[2022-04-09 12:16] LABS: UTC Strep Screen (Rapid) Negative (Negative)
--- NOTE | 2022-04-09 12:21 | EXP.UTC ---
Discharge Plan Disposition Patient Disposition: Home, Self-Care Condition: Good Prescriptions Prescriptions: New azithromycin [Zithromax Z-Mateo] 250 mg tablet See Rx Instructions .ROUTE .COMPLEX 5 Days Qty: 6 0RF Rx Instructions: For 250 mg dose pack: take 500 mg today (day 1), then 250 mg for 4 days (days 2-5) methylprednisolone [Medrol (Mateo)] 4 mg tablets,dose pack See Rx Instructions .Route .COMPLEX 6 Days Qty: 21 0RF Rx Instructions: taper pack; Referrals Follow up/Referrals: Provider,Referral, MD [Primary Care Provider] - See instructions Activity Restrictions/Add. Instructions Additional Instructions/Restrictions: *Monitor Temp, Over the counter Motrin or Tylenol as directed/as needed Tylenol every 4 hours and Motrin every 6 hours (as long as your family doctor has told you that you can take it) for fever or pain. and straight to ER if unable to lower temp less than 101.0 after medication given *Warm salt water gargles may help to soothe the throat *Throat Lozenges? *Warm fluids like tea with honey may help to soothe the throat? *Sleep elevated *Humidifier/Vaporizer *Flonase 2 sprays in each nostril daily but be aware that it may take 2-3 days before you notice improvement *Bromfed may cause drowsiness. Know how it effects you (your child) before driving, caring for small child, or sending your child to school. Not other antihistamines/allergy medications while taking bromfed Your throat swab was sent for culture. Those results are typically sent to your primary care. Be sure to follow up in 2-3 days with your family doctor/primary care physician if no improvement so they can review those result and treat if necessary. If you don?t have a primary care doctor, I recommend you get one but in the mean time, you will have to return to a walk in clinic Follow up IMMEDIATELY for new or worsening symptoms or no Noticeable improvement over the next 48-72 hours. 911 for difficulty breathing or swallowing Clinical Impressions Clinical Impression: Sinusitis Instructions Patient Instructions: Sinusitis, DI for Sinusitis Discharge ED Provider: Maren Salinas [facility] [place] General Stated complaint: sore throat Mode of Arrival: Ambulatory Source of Information: Patient Limitations: No Limitations Time Seen by Provider: 04/09/22 12:21 Description of Symptoms (Recalled from Triage Doc. by RN): PATIENT C/O SORE THROAT X 2 DAYS HEENT Symptoms (Recalled from RN notes): Yes Resp Symptoms (Recalled from RN notes): No Skin Symptoms (Recalled from RN notes): No MS Symptoms (Recalled from RN notes): No Functional Status (Recalled from RN notes): WNL History of Present Illness Provider Complaint: Patient states that she has been having some sinus congestion and pressure for about a week thought it would go away but hasnt and for the last couple of days she has been having some sore throat Related Data Previous Rx's Medication Instructions Recorded azithromycin 250 mg tablet See Rx Instructions PO .COMPLEX 5 04/09/22 (Zithromax Z-Mateo) days #6 tabs methylprednisolone 4 mg tablets in See Rx Instructions .Route 04/09/22 a dose pack (Medrol (Mateo)) .COMPLEX 6 days #21 tabs Allergies Allergy/AdvReac Type Severity Reaction Status Date / Time No Known Allergies Allergy Verified 07/19/21 11:36 Worker's Comp Is this a Worker's Comp case?: No [facility] Disclaimer: The information contained in this section may have been updated after the patient was seen, as this information can be updated by other users. Medical History (Updated 04/09/22 @ 12:24 by Maren Salinas APRN) History of gastroesophageal reflux (GERD) Kidney stone Urinary tract infection Surgical History History of section History of tonsillectomy Social History (Updated 04/09/22 @ 12:08 by Clara Brandt RN) Smoking Status: Never smoker alc
[2022-04-09 12:37] VITALS: BP 129/86; PULSE 71; RESP 19; TEMP 36.7; O2SAT 99
== END 2022-04-09 12:39 | disposition home or self-care (01) ==
PROVIDERS: Emergency Provider Nurse Practitioner
DX: J32.9 Chronic sinusitis, unspecified (principal)
CPT/HCPCS: 87880; 99212; 99213; G0463

== ENCOUNTER → 2022-07-17 08:09 | Outpatient (CLI) | payer BC, SELFPAY ==
[2022-07-17 08:55] LABS: Basophils # 0.1 K/mm3 (0-0.2); Basophils % 0.8 % (0.1-2.0); Eosinophils # 0.2 K/mm3 (0.0-0.4); Eosinophils % 2.9 % (0.1-12.0); Hematocrit 41.1 % (37.0-47.0); Hemoglobin 13.4 g/dL (12.2-16.2); Lymphocytes # 1.8 K/mm3 (0.7-4.5); Lymphocytes % 28.3 % (10-50); Mean Corpuscular HGB Conc 32.5 g/dL (31.8-35.4); Mean Corpuscular Hemoglobin 28.6 pg (27.0-31.2); Mean Platelet Volume 9.1 fl (7.4-10.4); Monocytes # 0.3 K/mm3 (0.1-1.0); Monocytes % 5.4 % (1.7-9.3); Neutrophils # 3.9 K/mm3 (1.8-7.8); Neutrophils % 62.5 % (37.0-80.0); Platelet Count 211 K/mm3 (142-424); Red Blood Count 4.67 M/mm3 (4.20-5.40); Red Cell Distribution Width 13.5 % (11.5-17.5); White Blood Count 6.3 K/mm3 (4.8-10.8)
[2022-07-17 09:18] LABS: Hemoglobin A1C 6.9 % (4.0-6.0)
[2022-07-17 09:25] LABS: Alanine Aminotransferase 20 U/L (12-78); Albumin/Globulin Ratio 1.4 (1.1-1.8); Alkaline Phosphatase 73 U/L (38-126); Anion Gap 10.9 mEq/L (5-15); Aspartate Amino Transferase 27 U/L (14-36); Bilirubin,Total 0.4 mg/dl (0.2-1.3); Blood Urea Nitrogen 11 mg/dl (7-17); Calcium 8.5 mg/dl (8.4-10.2); Carbon Dioxide 27 mmol/L (22.0-30.0); Chloride 103 mmol/L (98-107); Chol/HDL Ratio 3.5 (1-3.5); Cholesterol 142 mg/dl (140-200); Estimated Glomerular Filt Rate 138 ml/min (>60); GFR (African American) 167 ML/MIN (>60); Globulin 2.8 g/dL (1.3-3.2); Glucose 89 mg/dl (74-100); HDL Cholesterol 41 mg/dl (40-60); Potassium 3.9 mmoL/L (3.5-5.1); Sodium 137 mmol/L (136-145); Total Protein,Serum 6.8 g/dl (6.3-8.2); Triglycerides 59 mg/dl (30-150); VLDL Cholesterol 12 mg/dL (0-40)
[2022-07-17 09:40] LABS: 25-OH Vitamin D, Total 84.6 ng/mL (30-100)
[2022-07-17 10:06] LABS: Iron 72 ug/dL (37-170)
[2022-07-17 10:16] LABS: Total Iron Binding Capacity 402 ug/dL (265-497)
[2022-07-17 10:43] LABS: Ferritin 7.93 ng/ml (6.24-137)
[2022-07-17 11:33] LABS: Folate > 20.00 ng/mL
[2022-07-20 08:20] LABS: Vitamin A 30.9 ug/dL (18.9-57.3)
[2022-07-20 13:17] LABS: Vitamin B1 191.6 nmol/L (66.5-200.0)
[2022-07-20 19:54] LABS: Vitamin E Alpha Tocopherol 9.3 mg/L (5.9-19.4); Vitamin E Gamma Tocopherol 0.7 mg/L (0.7-4.9)
[2022-07-21 02:25] LABS: Methylmalonic Acid 140 nmol/L (0-378)
== END ==
PROVIDERS: Visit Provider Nurse Practitioner Family
DX: Z90.3 Acquired absence of stomach [part of] (principal)
CPT/HCPCS: 36415; 80053; 80061; 82131; 82306; 82728; 82746; 83036; 83540; 83550; 84425; 84446; 84590; 85025

== ENCOUNTER → 2022-08-31 11:47 | Outpatient (CLI) | payer BC, SELFPAY ==
[2022-08-31 11:52] LABS: Microscopic, Urine URINE MICROSCOPIC (MICROSCOPIC)
[2022-08-31 12:12] LABS: Appearance,Urine CLEAR (Clear); Bilirubin,Urine Negative (Negative); Blood, Urine Negative (Negative); Color,Urine YELLOW (Yellow); Glucose,Urine (UA) Negative (Negative); Ketones,Urine TRACE (Negative); Leukocyte Esterase,Urine Negative (Negative); Nitrate,Urine Negative (Negative); PH,Urine 6.5 (5.0-8.5); Protein,Urine Negative (Negative); Specific Gravity, Urine 1.025 (1.005-1.030); Urobilinogen,Urine 0.2 EU/dl (0.2)
[2022-08-31 12:28] LABS: Bacteria,Urine Trace /lpf; WBC,Urine Occasional #/hpf (0-3)
== END ==
PROVIDERS: PCP Obstetrics & Gynecology Gynecology; Visit Provider Obstetrics & Gynecology Gynecology
DX: R30.0 Dysuria (principal)
CPT/HCPCS: 81001; 87086

== ENCOUNTER → 2022-10-25 07:53 | Outpatient (CLI) | payer BC, SELFPAY ==
[2022-10-25 08:58] LABS: Alanine Aminotransferase 20 U/L (12-78); Albumin Level 3.9 g/dl (3.5-5.0); Albumin/Globulin Ratio 1.3 (1.1-1.8); Alkaline Phosphatase 76 U/L (38-126); Anion Gap 9.1 mEq/L (5-15); Aspartate Amino Transferase 27 U/L (14-36); Bilirubin,Total 0.5 mg/dl (0.2-1.3); Blood Urea Nitrogen 12 mg/dl (7-17); Calcium 8.8 mg/dl (8.4-10.2); Carbon Dioxide 26 mmol/L (22.0-30.0); Chloride 108 mmol/L (98-107); Chol/HDL Ratio 3.1 (1-3.5); Cholesterol 147 mg/dl (140-200); Estimated Glomerular Filt Rate 138 ml/min (>60); GFR (African American) 167 ML/MIN (>60); Glucose 99 mg/dl (74-100); HDL Cholesterol 48 mg/dl (40-60); Potassium 4.1 mmoL/L (3.5-5.1); Sodium 139 mmol/L (136-145); Total Protein,Serum 6.9 g/dl (6.3-8.2); Triglycerides 61 mg/dl (30-150); VLDL Cholesterol 12 mg/dL (0-40)
[2022-10-25 09:09] LABS: Direct LDL Cholesterol 81.93 mg/dL (100-129)
[2022-10-25 09:15] LABS: 25-OH Vitamin D, Total 100 ng/mL (30-100)
[2022-10-25 09:31] LABS: Iron 84 ug/dL (37-170)
[2022-10-25 09:40] LABS: Total Iron Binding Capacity 393 ug/dL (265-497)
[2022-10-25 10:05] LABS: Folate > 20.00 ng/mL
[2022-10-25 14:27] LABS: Hemoglobin A1C 5.1 % (4.0-6.0)
[2022-10-25 16:35] LABS: Basophils # 0.1 K/mm3 (0-0.2); Basophils % 0.7 % (0.1-2.0); Eosinophils # 0.2 K/mm3 (0.0-0.4); Eosinophils % 2.6 % (0.1-12.0); Hematocrit 39.5 % (37.0-47.0); Hemoglobin 12.4 g/dL (12.2-16.2); Lymphocytes # 1.7 K/mm3 (0.7-4.5); Lymphocytes % 24.8 % (10-50); Mean Corpuscular HGB Conc 31.5 g/dL (31.8-35.4); Mean Corpuscular Hemoglobin 27.7 pg (27.0-31.2); Mean Corpuscular Volume 87.9 fl (81-99); Mean Platelet Volume 10.4 fl (7.4-10.4); Monocytes # 0.4 K/mm3 (0.1-1.0); Monocytes % 5.6 % (1.7-9.3); Neutrophils # 4.6 K/mm3 (1.8-7.8); Neutrophils % 66.4 % (37.0-80.0); Platelet Count 202 K/mm3 (142-424); White Blood Count 6.9 K/mm3 (4.8-10.8)
[2022-10-25 20:44] LABS: Ferritin 8.01 ng/ml (6.24-137)
[2022-10-28 21:07] LABS: Vitamin B1 157.9 nmol/L (66.5-200.0)
[2022-10-30 18:20] LABS: Vitamin A 28.4 ug/dL (18.9-57.3); Vitamin E Alpha Tocopherol 9.1 mg/L (5.9-19.4); Vitamin E Gamma Tocopherol 1.1 mg/L (0.7-4.9)
[2022-11-17 17:10] LABS: Methylmalonic Acid 172 nmol/L (0-378)
== END ==
PROVIDERS: PCP Nurse Practitioner Family; Visit Provider Nurse Practitioner Family
DX: Z90.3 Acquired absence of stomach [part of] (principal)
CPT/HCPCS: 36415; 80053; 80061; 82306; 82728; 82746; 83036; 83540; 83550; 83921; 84425; 84446; 84590; 85025

== ENCOUNTER → 2022-12-03 10:09 | Outpatient (CLI) | payer BC, SELFPAY ==
[2022-12-03 10:24] LABS: MANUAL DIFFERENTIAL MANUAL DIFFERENTIAL (MANUAL DIFF)
--- NOTE | 2022-12-03 10:34 | US_ITS ---
FINAL REPORT TECHNIQUE: Real-time grayscale and color ultrasound of the thyroid was performed. CLINICAL HISTORY: fatigue COMPARISON: 05/12/2020 FINDINGS: The thyroid gland measures 48 mm on the right and 39 mm on the left. The isthmus measures 2 mm. There are multiple nodules throughout both lobes of the thyroid. Some are cystic, similar solid, and some are mixed. Most are subcentimeter. The dominant nodule on the right measures 1.5 cm, is partially cystic, and TR 3. The dominant nodule on the right measures 1.3 cm, is isoechoic, and TR 3. IMPRESSION: Multiple bilateral thyroid nodules, largest up to 1.5 cm and TR 3. No further follow-up required per TI-RADS criteria. Reviewed, Interpreted and Dictated by Tomy Connolly MD Transcribed by Magui Bateman Authenticated and . [facility]
[2022-12-03 10:35] LABS: Basophils % 0.7 % (0.1-2.0); Eosinophils # 0.1 K/mm3 (0.0-0.4); Eosinophils % 1.9 % (0.1-12.0); Hematocrit 40.9 % (37.0-47.0); Lymphocytes # 1.9 K/mm3 (0.7-4.5); Lymphocytes % 28.5 % (10-50); Mean Corpuscular HGB Conc 31.9 g/dL (31.8-35.4); Mean Corpuscular Hemoglobin 28.2 pg (27.0-31.2); Mean Corpuscular Volume 88.4 fl (81-99); Mean Platelet Volume 8.9 fl (7.4-10.4); Monocytes # 0.4 K/mm3 (0.1-1.0); Monocytes % 6.5 % (1.7-9.3); Neutrophils # 4.1 K/mm3 (1.8-7.8); Neutrophils % 62.4 % (37.0-80.0); Platelet Count 212 K/mm3 (142-424); Red Blood Count 4.63 M/mm3 (4.20-5.40); Red Cell Distribution Width 13.7 % (11.5-17.5); White Blood Count 6.5 K/mm3 (4.8-10.8)
[2022-12-03 10:56] LABS: Eosinophils % 1 % (0-3); Lymphocytes % 26 % (10-50); Monocytes % 5 % (2-9); Neutrophils % 68 % (42-76); Platelet Estimate Normal; RBC Morphology Normal; Total Cells Counted 100
[2022-12-03 10:59] LABS: Calcium 8.9 mg/dl (8.4-10.2)
[2022-12-03 11:17] LABS: Free T4 (Free Thyroxine) 0.84 ng/dl (0.78-2.19)
[2022-12-03 11:18] LABS: 25-OH Vitamin D, Total 107 ng/mL (30-100)
[2022-12-03 11:31] LABS: Thyroid Stimulating Hormone 1.32 uIU/mL (0.465-4.68)
[2022-12-03 11:50] LABS: Vitamin B12 542 pg/mL (239-931)
[2022-12-04 08:18] LABS: Thyroid Peroxidase Antibodies <9 IU/mL (0-34)
[2022-12-05 09:13] LABS: Thyroglobulin IMA CHARGE YES; Thyroglobulin Level <1.0 IU/mL (0.0-0.9)
== END ==
PROVIDERS: PCP Nurse Practitioner Family; Visit Provider Nurse Practitioner
DX: E04.2 Nontoxic multinodular goiter (principal); E07.9 Disorder of thyroid, unspecified; E67.3 Hypervitaminosis D
CPT/HCPCS: 36415; 76536; 82306; 82310; 82607; 84439; 84443; 85007; 85014; 85018; 85048; 85049; 86376; 86800

== ENCOUNTER 2022-12-19 18:39 | Emergency (ER) | payer BC, SELFPAY ==
[2022-12-19 18:45] VITALS: BP 116/75; PULSE 89; RESP 18; TEMP 36.6; O2SAT 99; BMI 33.3
--- NOTE | 2022-12-19 18:51 | EXP.UTC ---
Discharge Plan Disposition Patient Disposition: Home, Self-Care Condition: Good Prescriptions Prescriptions: New prednisone 10 mg tablet 10 mg PO BID 3 Days Qty: 6 0RF amoxicillin [amoxicillin] 875 mg tablet 875 mg PO Q12H Qty: 20 0RF Referrals Follow up/Referrals: Haider Ng APRN [Primary Care Provider] - See instructions Activity Restrictions/Add. Instructions Additional Instructions/Restrictions: Drink plenty of fluids. Take tylenol or ibuprofen for pain or fever. Take the medications as directed. Follow up with your regular doctor. GO TO THE ER FOR ANY WORSENING SYMPTOMS Throw your tooth brush away and get a new one. Clinical Impressions Clinical Impression: Strep pharyngitis Stand Alone Forms Stand Alone Forms: Work/School Release Instructions Patient Instructions: Strep Throat, DI for Strep Throat Discharge ED Provider: Scott Kwon [facility] General Stated complaint: sore throat Time Seen by Provider: 12/19/22 18:51 History of Present Illness Provider Complaint: She states that she has had sore throat, chills, and fever since yesterday. Related Data Previous Rx's Medication Instructions Recorded amoxicillin 875 mg tablet 875 mg PO Q12H #20 tabs 12/19/22 prednisone 10 mg tablet 10 mg PO BID 3 days #6 tabs 12/19/22 Allergies Allergy/AdvReac Type Severity Reaction Status Date / Time No Known Allergies Allergy Verified 12/19/22 18:54 [facility] Disclaimer: The information contained in this section may have been updated after the patient was seen, as this information can be updated by other users. Medical History (Updated 12/19/22 @ 19:02 by Scott Kwon APRN) Fatigue Goiter History of gastroesophageal reflux (GERD) Kidney stone Multinodular goiter Urinary tract infection Surgical History History of section History of tonsillectomy Social History Smoking Status: Never smoker alcohol intake: never current occupational status: employed Travel in the last 8 weeks: Inside the [place] household members: spouse and family housing: house ROS Obtained: Yes All systems reviewed & no additional complaints except as documented Constitutional Constitutional: Reports chills and Reports fever(s) Eyes Eyes: Denies eye discharge ENT Ears, Nose, Mouth, and Throat: Reports as per HPI Cardiovascular Cardiovascular: Denies chest pain Respiratory Respiratory: Denies chest congestion and Reports cough Gastrointestinal Gastrointestingal: Reports nausea; Denies abdominal pain, constipation, cramping, diarrhea or vomiting Musculoskeletal Musculoskeletal: Denies arthralgias Integumentary/Breasts Skin/Breast: Denies rash Neurologic Neurologic: Denies paresthesias Physical Exam General General appearance: alert and in no apparent distress Head Head exam: atraumatic, normocephalic and normal inspection Eye Eye exam: Present normal appearance, PERRL and EOMI ENT ENT exam: Present mucous membranes moist and normal external ear exam Expanded ENT Exam TM/Canal exam: Bilateral TM: erythema and bulging Nose exam: Absent sinus tenderness Mouth exam: Present normal external inspection; Absent drooling Teeth exam: Present normal inspection Throat exam: Present tonsillar erythema, tonsillomegaly and tonsillar exudate Neck Neck exam: Present normal inspection, full ROM and trachea midline; Absent tenderness, meningismus or lymphadenopathy Chest Chest inspection: Present normal inspection and symmetric chest wall rise; Absent tenderness Respiratory Respiratory exam: Present normal lung sounds bilaterally; Absent respiratory distress, wheezes or stridor Cardiovascular Cardiovascular exam: Present regular rate and normal rhythm; Absent systolic murmur or diastolic murmur Abdominal Exam Abdominal exam: Present soft and normal bowel sounds;
[2022-12-19 19:01] LABS: UTC Strep Screen (Rapid) Positive (Negative)
[2022-12-19 19:38] VITALS: BP 116/75; PULSE 89; RESP 18; TEMP 36.6; O2SAT 99
== END 2022-12-19 19:38 | disposition home or self-care (01) ==
PROVIDERS: Emergency Provider Nurse Practitioner Family; PCP Nurse Practitioner Family
DX: J02.0 Streptococcal pharyngitis (principal); R50.9 Fever, unspecified; E04.2 Nontoxic multinodular goiter
CPT/HCPCS: 87880; 99212; 99214; G0463

== ENCOUNTER 2022-12-25 18:34 | Emergency (ER) | payer BC, SELFPAY ==
--- NOTE | 2022-12-25 19:09 | EXP.UTC ---
Discharge Plan Disposition Patient Disposition: Home, Self-Care Condition: Good Prescriptions Prescriptions: New azithromycin [Zithromax] 250 mg tablet 250 mg PO UD DOSE PK Qty: 6 0RF Rx Instructions: Take two (2) tablets today, then one (1) tablet days #2 thru #5 fluconazole [Diflucan] 150 mg tablet 150 mg PO ONCE Qty: 1 4RF methylprednisolone 4 mg Tablets,Dose Pack 4 mg PO DIRECTED Qty: 21 0RF No Action prednisone 10 mg tablet 10 mg PO BID 3 Days Qty: 6 0RF amoxicillin [amoxicillin] 875 mg tablet 875 mg PO Q12H Qty: 20 0RF Referrals Follow up/Referrals: Haider Ng APRN [Primary Care Provider] - See instructions Activity Restrictions/Add. Instructions Additional Instructions/Restrictions: Drink plenty of fluids. Take tylenol or ibuprofen for pain or fever. Stop the antibiotics that you are on and start the new one. Take the medications as directed. Follow up with your regular doctor. GO TO THE ER FOR ANY WORSENING SYMPTOMS Clinical Impressions Clinical Impression: Pharyngitis Stand Alone Forms Stand Alone Forms: Work/School Release Instructions Patient Instructions: DI for Pharyngitis/Tonsillopharyngitis -- Adult Discharge ED Provider: Scott Kwon [facility] General Stated complaint: poss thrush Time Seen by Provider: 12/25/22 19:09 History of Present Illness Provider Complaint: She is back with continued c/o sore throat. She has been taking the medication as prescribed but she states that she is not getting any better. Related Data Previous Rx's Medication Instructions Recorded amoxicillin 875 mg tablet 875 mg PO Q12H #20 tabs 12/19/22 prednisone 10 mg tablet 10 mg PO BID 3 days #6 tabs 12/19/22 azithromycin 250 mg tablet 250 mg PO UD DOSE PK #6 tabs 12/25/22 (Zithromax) fluconazole 150 mg tablet 150 mg PO ONCE #1 tab 12/25/22 (Diflucan) methylprednisolone 4 mg tablets in 4 mg PO DIRECTED #21 tabs 12/25/22 a dose pack Allergies Allergy/AdvReac Type Severity Reaction Status Date / Time No Known Allergies Allergy Verified 12/19/22 18:54 [facility] Disclaimer: The information contained in this section may have been updated after the patient was seen, as this information can be updated by other users. Medical History (Updated 12/25/22 @ 19:50 by Scott Kwon APRN) Fatigue Goiter History of gastroesophageal reflux (GERD) Kidney stone Multinodular goiter Urinary tract infection Surgical History History of section History of tonsillectomy Social History Smoking Status: Never smoker alcohol intake: never current occupational status: employed Travel in the last 8 weeks: [place] the [place] household members: spouse and family housing: house ROS Obtained: Yes All systems reviewed & no additional complaints except as documented Constitutional Constitutional: Denies chills and Denies fever(s) Eyes Eyes: Denies eye discharge ENT Ears, Nose, Mouth, and Throat: Reports as per HPI Cardiovascular Cardiovascular: Denies chest pain Respiratory Respiratory: Denies chest congestion and Reports cough Gastrointestinal Gastrointestingal: Reports nausea; Denies abdominal pain, constipation, cramping, diarrhea or vomiting Musculoskeletal Musculoskeletal: Denies arthralgias Integumentary/Breasts Skin/Breast: Denies rash Neurologic Neurologic: Denies paresthesias Physical Exam General General appearance: alert and in no apparent distress Head Head exam: atraumatic, normocephalic and normal inspection Eye Eye exam: Present normal appearance, PERRL and EOMI ENT ENT exam: Present mucous membranes moist and normal external ear exam Expanded ENT Exam TM/Canal exam: Bilateral TM: erythema and bulging Nose exam: Absent sinus tenderness Mouth exam: Present normal external inspection; Absent droo
[2022-12-25 19:18] VITALS: BP 113/78; PULSE 82; RESP 18; TEMP 36.8; O2SAT 100; BMI 31.1
[2022-12-25 19:53] VITALS: BP 113/79; PULSE 82; RESP 16; TEMP 36.8; O2SAT 98
== END 2022-12-25 19:57 | disposition home or self-care (01) ==
PROVIDERS: Emergency Provider Nurse Practitioner Family; PCP Nurse Practitioner Family
DX: J02.9 Acute pharyngitis, unspecified (principal); E04.2 Nontoxic multinodular goiter
CPT/HCPCS: 99212; 99214; G0463

== ENCOUNTER 2023-02-16 18:06 | Emergency (ER) | payer BC, SELFPAY ==
--- NOTE | 2023-02-16 18:09 | XR_ITS ---
PROCEDURE INFORMATION: Exam: XR Left Shoulder Exam date and time: 02/16/2023 6:09 PM Age: 37 years old Clinical indication: Pain; Shoulder; Left TECHNIQUE: Imaging protocol: Radiologic exam of the left shoulder. Views: 2 or more views. COMPARISON: CR XR CHEST 2V 07/16/2021 7:50 PM FINDINGS: Bones/joints: Normal. Soft tissues: Normal. IMPRESSION: No acute findings.
[2023-02-16 18:20] VITALS: BP 140/87; PULSE 86; RESP 20; TEMP 36.8; O2SAT 98; BMI 31.1
--- NOTE | 2023-02-16 18:49 | EXP.UTC ---
Discharge Plan Disposition Patient Disposition: Home, Self-Care Condition: Good Prescriptions Prescriptions: New cyclobenzaprine 10 mg tablet 10 mg PO TID PRN (Reason: muscle spasm) Qty: 15 0RF Referrals Follow up/Referrals: Provider,Referral, MD [Primary Care Provider] - See instructions Activity Restrictions/Add. Instructions Additional Instructions/Restrictions: You can still take Tylenol every 4 hours as needed if you need something for pain *Ice 20 minutes every 2 hours for the first 48 hours after the initial injury followed by moist heat every 20 minutes 3-4 times a day to affected area *Muscle relaxer every 8 hours as needed for muscle spasms but remember, it WILL cause drowsiness You cannot take it and drive, operate machinery or care for small children. *Keep this area active, no movement leads to more stiffness, However take it easy and avoid heavy lifting pushing or pulling *Follow up with you family doctor if no improvement for further treatment GO straight to ER if pain starts radiating into your neck or jaw area, chest pain or any life threatening symptoms Clinical Impressions Clinical Impression: Axillary pain Qualifiers: Laterality: left Qualified Code(s): M79.622 - Pain in left upper arm Instructions Patient Instructions: Cyclobenzaprine, Acetaminophen (Alternative Therapy) Discharge ED Provider: Maren Salinas [facility] [place] General Stated complaint: AO 02/16/23 700 Injury left shoulder Mode of Arrival: Ambulatory Source of Information: Patient Limitations: No Limitations Time Seen by Provider: 02/16/23 18:49 Description of Symptoms (Recalled from Triage Doc. by RN): PATIENT C/O LEFT SHOULDER/UPPER ARM PAIN THAT STARTED THIS MORNING. NO KNOWN INJURY HEENT Symptoms (Recalled from RN notes): No Resp Symptoms (Recalled from RN notes): No Skin Symptoms (Recalled from RN notes): No MS Symptoms (Recalled from RN notes): Yes Functional Status (Recalled from RN notes): WNL History of Present Illness Provider Complaint: Patient states that she woke with pain under her left arm that is worse with movement states that feels like a spasm States that when she tries to raise her arm or cross it over her body the pain is worse and denies pain when she is holding it down States that pain only occurs with movement denies known injury No swelling Denies radiation of pain and denies chest pain Related Data Previous Rx's Medication Instructions Recorded cyclobenzaprine 10 mg tablet 10 mg PO TID PRN muscle spasm #15 02/16/23 tabs Allergies Allergy/AdvReac Type Severity Reaction Status Date / Time No Known Allergies Allergy Verified 12/19/22 18:54 Worker's Comp Is this a Worker's Comp case?: No [facility] Disclaimer: The information contained in this section may have been updated after the patient was seen, as this information can be updated by other users. Medical History (Updated 02/16/23 @ 19:01 by Maren Salinas APRN) Fatigue Goiter History of gastroesophageal reflux (GERD) Kidney stone Multinodular goiter Pulmonary embolism Urinary tract infection Surgical History History of section History of tonsillectomy Social History Smoking Status: Never smoker alcohol intake: never current occupational status: employed Travel in the last 8 weeks: [place] the [place] household members: spouse and family housing: house ROS Obtained: Yes All systems reviewed & no additional complaints except as documented and Yes Systems reviewed as appropriate & no additional complaints except as documented Constitutional Constitutional: Reports system reviewed and no additional complaints, except as documented, Reports as per HPI, Denies body ache, Denies chills, Denies fever(s) and Denies headache(s) Eyes Eyes: Reports system reviewed and no additional complaints, excep
[2023-02-16 18:54] VITALS: BP 140/87; PULSE 86; RESP 20; TEMP 36.8; O2SAT 98
== END 2023-02-16 19:04 | disposition home or self-care (01) ==
PROVIDERS: Emergency Provider Nurse Practitioner
DX: M79.622 Pain in left upper arm (principal); M62.838 Other muscle spasm
CPT/HCPCS: 73030; 99212; 99214; G0463

== ENCOUNTER → 2023-03-05 16:20 | Outpatient (CLI) | payer BC, SELFPAY ==
--- NOTE | 2023-03-05 16:25 | XR_ITS ---
PROCEDURE INFORMATION: Exam: XR Right Knee Exam date and time: 03/05/2023 4:27 PM Age: 37 years old Clinical indication: Pain; Knee; Right; Additional info: Swelling of knee joint TECHNIQUE: Imaging protocol: Radiologic exam of the right knee. Views: 4 or more views. COMPARISON: No relevant prior studies available. FINDINGS: Bones/joints: There is a moderate suprapatellar joint effusion. The osseous structures appear intact with no evidence of acute fracture, dislocation, or malalignment. Joint spaces are preserved. No abnormal bone density or destructive lesions are noted. Soft tissues: Soft tissues appear unremarkable. IMPRESSION: 1. There is a moderate suprapatellar joint effusion. 2. At the time of imaging, there is no evidence for acute osseous abnormalities. Clinical correlation is advised for comprehensive assessment.
== END ==
PROVIDERS: PCP Nurse Practitioner Family; Visit Provider Nurse Practitioner Family
DX: M25.461 Effusion, right knee (principal)
CPT/HCPCS: 73564

== ENCOUNTER 2023-04-27 08:35 | Outpatient (CLI) | payer BC, SELFPAY ==
[2023-04-27 09:13] LABS: Basophils % 0.6 % (0.1-2.0); Eosinophils # 0.2 K/mm3 (0.0-0.4); Eosinophils % 2.4 % (0.1-12.0); Hematocrit 40.7 % (37.0-47.0); Hemoglobin 13.4 g/dL (12.2-16.2); Lymphocytes # 1.8 K/mm3 (0.7-4.5); Lymphocytes % 28.2 % (10-50); Mean Corpuscular Hemoglobin 28.7 pg (27.0-31.2); Mean Corpuscular Volume 86.9 fl (81-99); Mean Platelet Volume 9.2 fl (7.4-10.4); Monocytes # 0.4 K/mm3 (0.1-1.0); Monocytes % 6.1 % (1.7-9.3); Neutrophils # 3.9 K/mm3 (1.8-7.8); Neutrophils % 62.8 % (37.0-80.0); Platelet Count 193 K/mm3 (142-424); Red Blood Count 4.68 M/mm3 (4.20-5.40); Red Cell Distribution Width 14.3 % (11.5-17.5); White Blood Count 6.2 K/mm3 (4.8-10.8)
[2023-04-27 10:38] LABS: Chloride 105 mmol/L (98-107); Potassium 4.1 mmoL/L (3.5-5.1); Sodium 138 mmol/L (136-145)
[2023-04-27 10:40] LABS: Alanine Aminotransferase 20 U/L (12-78); Alkaline Phosphatase 73 U/L (38-126); Aspartate Amino Transferase 26 U/L (14-36); Bilirubin,Total 0.6 mg/dl (0.2-1.3); Blood Urea Nitrogen 11 mg/dl (7-17); Estimated Glomerular Filt Rate 112 ml/min (>60); GFR (African American) 135 ML/MIN (>60)
[2023-04-27 10:41] LABS: Albumin Level 3.7 g/dl (3.5-5.0); Albumin/Globulin Ratio 1.2 (1.1-1.8); Anion Gap 10.1 mEq/L (5-15); Calcium 8.4 mg/dl (8.4-10.2); Carbon Dioxide 27 mmol/L (22.0-30.0); Chol/HDL Ratio 3.8 (1-3.5); Cholesterol 149 mg/dl (140-200); Glucose 98 mg/dl (74-100); HDL Cholesterol 39 mg/dl (40-60); Iron 93 ug/dL (37-170); Total Protein,Serum 6.7 g/dl (6.3-8.2); Triglycerides 64 mg/dl (30-150); VLDL Cholesterol 13 mg/dL (0-40)
[2023-04-27 10:51] LABS: Total Iron Binding Capacity 399 ug/dL (265-497)
[2023-04-27 10:52] LABS: Direct LDL Cholesterol 90.95 mg/dL (100-129)
[2023-04-27 10:58] LABS: 25-OH Vitamin D, Total 82.8 ng/mL (30-100)
[2023-04-27 11:01] LABS: Free T4 (Free Thyroxine) 0.94 ng/dl (0.78-2.19)
[2023-04-27 11:13] LABS: Thyroid Stimulating Hormone 0.73 uIU/mL (0.465-4.68)
[2023-04-27 11:17] LABS: Ferritin 7.82 ng/ml (6.24-137)
[2023-04-28 11:22] LABS: Prealbumin 18 mg/dL (14-35)
[2023-04-30 10:16] LABS: Selenium 187 ug/L (100-340)
[2023-05-01 15:10] LABS: Zinc 78 ug/dL (44-115)
[2023-05-01 17:17] LABS: Vitamin A 28.4 ug/dL (18.9-57.3)
[2023-05-02 12:46] LABS: Vitamin B1 122.4 nmol/L (66.5-200.0)
[2023-05-05 10:08] LABS: Methylmalonic Acid 132 nmol/L (0-378)
== END 2023-04-27 23:59 ==
PROVIDERS: PCP Nurse Practitioner Family; Visit Provider Nurse Practitioner Family
DX: Z90.3 Acquired absence of stomach [part of] (principal); Z98.84 Bariatric surgery status; E66.9 Obesity, unspecified; Z68.31 Body mass index [BMI] 31.0-31.9, adult; Z13.21 Encounter for screening for nutritional disorder; Z13.228 Encounter for screening for other metabolic disorders; Z13.29 Encounter for screening for other suspected endocrine disorder
CPT/HCPCS: 36415; 80053; 80061; 82306; 82525; 82728; 82746; 83036; 83540; 83550; 83921; 84134; 84255; 84425; 84439; 84443; 84590; 84630; 85025

== ENCOUNTER 2023-05-02 08:00 | Outpatient (RCR) | payer BC, SELFPAY ==
--- NOTE | 2023-04-23 08:43 | HMH.PTOPEV ---
PT Outpatient Evaluation Rehab PT Outpatient Evaluation Start: 04/23/23 08:26 Freq: Status: Active Protocol: Document 04/23/23 08:26 NICOLAS (Rec: 04/23/23 08:42 NICOLAS [id number]) E-signed By Nito Montalvo, PT Outpatient Therapy Subjective History Subjective History Patient is a 37 year old female presenting to outpatient PT with reports of sub-acute R knee pain starting approx 2 months ago. Symptom onset starting 2 months ago. Most recent imaging indicates mild suprapatellar effusion. No other comorbidities to report. New diagnosis of cancer in past 12 No months? Chief Complaint Pain,Stiff,Swelling Symptom Type Ache Symptoms Relieved By Rest/Positioning,Ice,OTC Meds Symptoms Aggravated By Standing,Physical Activity, Walking Prior Functional Limitations None Current Functional Limitations Standing,Squatting,Recreation Activity,Walking,Stairs Symptom Description Intermittent Level of pain today (0-10) 0 Pain scale - at its best (0-10) 0 Pain scale - at its worst (0-10) 6 Hip/Knee Eval Gait Observation General Gait Pattern Observation No Deviations/Normal Assistive Device Assistive Devices None / NA Palpation Tenderness right Knee Palpation Finding Tenderness Knee Palpation Overall Comment medial compartment 2/4 MMT Hip Flexion Strength Grade 4 Good Hip Abduction Strength Grade 4 Good Hip Adduction Strength Grade 4 Good Hip Extension Strength Grade 4 Good Hip External Rotation Strength Grade 4 Good Hip Internal Rotation Strength Grade 4 Good Knee Extension Strength Grade 4 Good Knee Flexion Strength Grade 5 Normal ROM Hip ROM Reason Not Measured Within Functional Limits Knee ROM Reason Not Measured Within Functional Limits Special Tests Knee Anterior Bucky Test Negative Right Knee Pivot Shift Test Negative Right Knee Valgus Stress Test Negative Right Knee Varus Stress Test Negative Right Knee Evie Test Negative Right Patellar Compression Test Positive Right Lower Extremity Functional Index Activities Today, do you or would you have any difficulty at all with: a.Any of your usual work, housework or A little bit of difficulty school activities b. Your usual hobbies, recreational or A little bit of difficulty sporting activities c. Getting into or out of the bath No difficulty d. Walking between rooms No difficulty e. Putting on your shoes or socks A little bit of difficulty f. Squatting Quite a bit of difficulty g. Lifting an object, like a bag of No difficulty groceries from the floor h. Performing light activities around No difficulty your home i. Performing heavy activities around Quite a bit of difficulty your home j. Getting into or out of a car No difficulty k. Walking 2 blocks Moderate difficulty l. Walking a mile Moderate difficulty m. Going up or down 10 stairs (about 1 Moderate difficulty flight of stairs) n. Standing for 1 hour No difficulty o. Sitting for 1 hour No difficulty p. Running on even ground Moderate difficulty q. Running on uneven ground Moderate difficulty r. Making sharp turns while running fast Quite a bit of difficulty s. Hopping Quite a bit of difficulty t. Rolling over in bed No difficulty LEFI Score Lower Extremity Functional Index Score 55 Outpatient Therapy Assessment Impairments Problems/Impairmments Palpation Tenderness,Impaired Strength,Impaired Walking, Impaired Standing,Impaired Household Care,Impaired Stair Climbing,Impaired Incline Stepping,Impaired Stepping on Uneven Surface,Impaired Squatting,Impaired Recreational Activities, Impaired Running,Impaired Jumping,Subjective C/O Pain Prognosis Rehab Potential Good Clinical Impression Consistent with Diagnosis Yes Short Term Goals Number of Weeks 2 Decrease Subjective C/O Pain Yes: 07/16 at worst Patient to be Ind w/ HEP Yes Rehab Director Goals Number of Weeks 4-6 Decreased Palpation Tenderness Yes: 04/11 Increase Strength Yes: R hip/thigh mm 08/10 Increase Ability to Walk Yes: 1 hr without difficulty Increase Ability to Stand Yes: Improve Ability For Household Care Yes Improve Ability to Climb Stairs Yes: 1 flight up/down without difficulty Improve LEFI Score Yes: >70 Decrease Subjective C/O Pain Yes: 05/18 at worst Outpatient Therapy Plan of Care Treatment Plan May Include Therapeutic Exercise Including Home Yes Exercise Program Manual Therapy Techniques Yes Neuromuscular Re-education Yes Therapeutic Activities to Return to Yes Previous Functional/Work Level Gait Training Yes ADL/Self Care Education Yes Dry Needling Yes Thermal Modalities Yes Electrical Stimulation Yes Ultrasound/Phonophoresis Yes Iontophoresis Yes Orthotics/Bracing/Splinting Yes Vasopneumatic Compression Pump Yes Massage Yes Eval/Re-Eval Yes Frequency Times per week 2 Duration Number of Weeks 4-6 Addendums This patient is a candidate for social No or vocational rehab? Patient/Guardian verbally acknowledges Yes understanding of treatment program and consents to further treatment? Patient/Guardian verbally acknowledges Yes understanding of diagnosis, prognosis and goals for treatment? Eval Complexity PT Charges 25928 - Low Complexity Shoulder/Elbow Eval Shoulder Objective Measurements Elbow Objective Measurements PHYSICIAN CERTIFICATION: I certify the specified therapy services for Shalini Montalvo are required, authorized, and reviewed every 30 days.
== END 2023-05-02 09:00 | disposition home or self-care (01) ==
LOC: PT 08:00
PROVIDERS: PCP Nurse Practitioner Family; Visit Provider Orthopaedic Surgery
DX: M25.561 Pain in right knee (principal)
CPT/HCPCS: 97035; 97110; 97140; 97163; 97530

== ENCOUNTER 2023-05-15 16:17 | Emergency (ER) | payer BC, SELFPAY ==
[2023-05-15 16:19] VITALS: BP 117/72; PULSE 83; RESP 18; TEMP 37.1; O2SAT 98; BMI 31.7
--- NOTE | 2023-05-15 16:51 | ED_ITS ---
Discharge Plan Disposition Patient Disposition: Home, Self-Care Condition: Good Prescriptions Prescriptions: No Action cyclobenzaprine 10 mg tablet 10 mg PO TID PRN (Reason: muscle spasm) Qty: 15 0RF Referrals Follow up/Referrals: Haider Ng APRN [Primary Care Provider] - See instructions Activity Restrictions/Add. Instructions Additional Instructions/Restrictions: *Monitor Temp, Over the counter Motrin or Tylenol as directed/as needed Tylenol every 4 hours and Motrin every 6 hours (as long as your family doctor has told you that you can take it) for fever or pain. and straight to ER if unable to lower temp less than 101.0 after medication given *Warm salt water gargles may help to soothe the throat *Throat Lozenges? *Warm fluids like tea with honey may help to soothe the throat? *Sleep elevated *Humidifier/Vaporizer Your throat swab was sent for culture. Those results are typically sent to your primary care. Be sure to follow up in 2-3 days with your family doctor/primary care physician if no improvement so they can review those result and treat if necessary. If you don?t have a primary care doctor, I recommend you get one but in the mean time, you will have to return to a walk in clinic Follow up IMMEDIATELY for new or worsening symptoms or no Noticeable improvement over the next 48-72 hours. 911 for difficulty breathing or swallowing Clinical Impressions Clinical Impression: Sore throat (viral) Instructions Patient Instructions: Sore Throat Discharge ED Provider: [place] [facility] [place] General Stated complaint: st Mode of Arrival: Ambulatory Source of Information: Patient Limitations: No Limitations Time Seen by Provider: 05/15/23 16:51 Description of Symptoms (Recalled from Triage Doc. by RN): Patient reports a sore throat since this morning. HEENT Symptoms (Recalled from RN notes): Yes Resp Symptoms (Recalled from RN notes): No Skin Symptoms (Recalled from RN notes): No MS Symptoms (Recalled from RN notes): No Functional Status (Recalled from RN notes): wnl History of Present Illness Provider Complaint: Patient states that she started this morning with sore throat States that she is having some drainage in the back of her throat but hurts when she swallows like it does with strep throat Related Data Previous Rx's Medication Instructions Recorded cyclobenzaprine 10 mg tablet 10 mg PO TID PRN muscle spasm #15 02/16/23 tabs Allergies Allergy/AdvReac Type Severity Reaction Status Date / Time No Known Allergies Allergy Verified 04/11/23 10:39 Worker's Comp Is this a Worker's Comp case?: [facility] Disclaimer: The information contained in this section may have been updated after the patient was seen, as this information can be updated by other users. Medical History Fatigue Goiter History of gastroesophageal reflux (GERD) Kidney stone Multinodular goiter Pulmonary embolism Urinary tract infection Surgical History History of section History of tonsillectomy Social History Smoking Status: Never smoker alcohol intake: never current occupational status: employed Travel in the last 8 weeks: [place] the [place] household members: spouse and family housing: house ROS Obtained: Yes All systems reviewed & no additional complaints except as documented and Yes Systems reviewed as appropriate & no additional complaints except as documented Constitutional Constitutional: Reports system reviewed and no additional complaints, except as documented and Reports as per HPI ENT Ears, Nose, Mouth, and Throat: Reports system reviewed and no additional complaints, except as documented, Reports as per HPI and Reports sore throat Cardiovascular Cardiovascular: Reports system reviewed and no additional complaints, except as documented and Reports as per HPI Respiratory Respiratory: Reports system reviewed and no additional complaints, except as documented and Reports as per HPI Gastrointestinal Gastrointestingal: Reports system reviewed and no additional complaints, except as documented and as per HPI Physical Exam General General appearance: alert and in no apparent distress ENT ENT exam: Present mucous membranes moist Expanded ENT Exam Throat exam: Present other (Pharyngeal erythema noted with PND) Respiratory Respiratory exam: Present normal lung sounds bilaterally; Absent respiratory distress or wheezes Cardiovascular Cardiovascular exam: Present regular rate, normal rhythm and normal heart sounds Neurological Exam Neurological exam: Present alert, oriented X3 and normal gait Medical Decision Making Mau Inquiry Pt receiving controlled substance: No Mau was queried for this patient: No Vital Signs: 05/15/23 16:19 Temperature 98.7 F Temperature Source Oral Pulse Rate [Radial] 83 Respiratory Rate 18 Blood Pressure [Right Arm] 117/72 Blood Pressure Mean [Right Arm] 87 Blood Pressure Source [Right Arm] Automatic Cuff Blood Pressure Position [Right Arm] Sitting 02 Sat by Pulse Oximetry 98 Oxygen Delivery Method Room Air Lab Data Lab results reviewed: Yes I reviewed the patient's lab results.
[2023-05-15 16:54] LABS: UTC Strep Screen (Rapid) Negative (Negative)
[2023-05-15 17:10] VITALS: BP 117/72; PULSE 83; RESP 18; TEMP 37.1; O2SAT 98
== END 2023-05-15 17:11 | disposition home or self-care (01) ==
PROVIDERS: Emergency Provider Nurse Practitioner; PCP Nurse Practitioner Family
DX: J02.9 Acute pharyngitis, unspecified (principal); B34.9 Viral infection, unspecified; R09.82 Postnasal drip; E04.2 Nontoxic multinodular goiter
CPT/HCPCS: 87880; 99212; 99214; G0463

== ENCOUNTER 2023-06-07 18:34 | Emergency (ER) | payer BC, SELFPAY ==
--- NOTE | 2023-06-07 18:49 | EXP.UTC ---
Discharge Plan Disposition Patient Disposition: Home, Self-Care Condition: Good Prescriptions Prescriptions: New azithromycin [Zithromax] 250 mg tablet 250 mg PO UD DOSE PK Qty: 6 0RF Rx Instructions: Take two (2) tablets today, then one (1) tablet days #2 thru #5 fluconazole 150 mg tablet 150 mg PO ONCE Qty: 1 3RF [id number]-rjncjynoi-KU [Bromfed DM] 2-30-10 mg/5 mL Syrup 5 ml PO Q6H PRN (Reason: Cough) Qty: 240 0RF No Action phentermine 37.5 mg tablet 37.5 mg PO DAILY omeprazole 20 mg capsule,delayed release(DR/EC) 20 mg PO DAILY fluticasone propionate 50 mcg/actuation spray,suspension 2 spray INTRANASAL DAILY Referrals Follow up/Referrals: Haider Ng APRN [Primary Care Provider] - See instructions Activity Restrictions/Add. Instructions Additional Instructions/Restrictions: Drink plenty of fluids. Take tylenol or ibuprofen for pain or fever. Take the medications as directed. Follow up with your regular doctor. GO TO THE ER FOR ANY WORSENING SYMPTOMS Clinical Impressions Clinical Impression: Sinusitis, Acute viral syndrome Instructions Patient Instructions: DI for Sinusitis Discharge ED Provider: Scott Kwon [facility] HPI General Stated complaint: Sore throat Time Seen by Provider: 06/07/23 18:48 History of Present Illness Provider Complaint: She states that for the past 2 days she has had worsening sore throat, sinus congestion, low grade fever and malaise. Related Data Home Medications Medication Instructions Recorded Confirmed fluticasone propionate 50 2 spray intranasal DAILY 06/07/23 06/07/23 mcg/actuation nasal spray,suspension omeprazole 20 mg capsule,delayed 20 mg PO DAILY 06/07/23 06/07/23 release phentermine 37.5 mg tablet 37.5 mg PO DAILY 06/07/23 06/07/23 Previous Rx's Medication Instructions Recorded azithromycin 250 mg tablet 250 mg PO UD DOSE PK #6 tabs 06/07/23 (Zithromax) zscjoeghyzjwuno-qoihipukoksgysc-LX 5 ml PO Q6H PRN Cough #240 mL 06/07/23 2 mg-30 mg-10 mg/5 mL oral syrup (Bromfed DM) fluconazole 150 mg tablet 150 mg PO ONCE 1 dose #1 tab 06/07/23 Allergies Allergy/AdvReac Type Severity Reaction Status Date / Time No Known Allergies Allergy Verified 04/11/23 10:39 [facility] Disclaimer: The information contained in this section may have been updated after the patient was seen, as this information can be updated by other users. Medical History Fatigue Goiter History of gastroesophageal reflux (GERD) Kidney stone Multinodular goiter Pulmonary embolism Urinary tract infection Surgical History History of section History of tonsillectomy Social History Smoking Status: Never smoker alcohol intake: never current occupational status: employed Travel in the last 8 weeks: Inside the [place] household members: spouse and family housing: house ROS Obtained: Yes All systems reviewed & no additional complaints except as documented Constitutional Constitutional: Reports chills and Reports fever(s) Eyes Eyes: Denies eye discharge ENT Ears, Nose, Mouth, and Throat: Reports as per HPI Cardiovascular Cardiovascular: Denies chest pain Respiratory Respiratory: Denies chest congestion and Reports cough Gastrointestinal Gastrointestingal: Reports nausea; Denies abdominal pain, constipation, cramping, diarrhea or vomiting Musculoskeletal Musculoskeletal: Denies arthralgias Integumentary/Breasts Skin/Breast: Denies rash Neurologic Neurologic: Denies paresthesias Physical Exam General General appearance: alert and in no apparent distress Eye Eye exam: Present normal appearance, PERRL and EOMI ENT ENT exam: Present mucous membranes moist and normal external ear exam Expanded ENT Exam External ear exam: Present normal external inspection TM/Canal exam: Bilateral TM: erythema and bulging Nose exam: Absent sinus tenderness Nasal speculum exam: Bilateral: normal Mouth exam: Present normal external inspection; Absent drooling Teeth exam: Present normal inspection Throat exam: Present tonsillar erythema and tonsillomegaly Neck Neck exam: Present normal inspection, full ROM and trachea midline; Absent tenderness, lymphadenopathy or thyromegaly Chest Chest inspection: Present normal inspection and symmetric chest wall rise; Absent tenderness or rash Respiratory Respiratory exam: Present normal lung sounds bilaterally; Absent respiratory distress, wheezes, stridor or accessory muscle use Cardiovascular Cardiovascular exam: Present regular rate, normal rhythm and normal heart sounds Abdominal Exam Abdominal exam: Present soft; Absent distention, tenderness, guarding, rebound or rigidity Extremities Exam Extremities exam: Present normal inspection, full ROM and normal capillary refill; Absent tenderness or calf tenderness Back Exam Back exam: Present normal inspection and full ROM; Absent tenderness Neurological Exam Neurological exam: Present alert and oriented X3 Psychiatric Psychiatric exam: Present normal affect and normal mood Skin Skin exam: Present warm, dry, intact and normal color Lymphatic Lymphatic Findings: no adenopathy Medical Decision Making Medical Records Medical records reviewed: No I reviewed the patient's medical records. Mau Inquiry Pt receiving controlled substance: No Lab Data Lab results reviewed: Yes I reviewed the patient's lab results.
[2023-06-07 18:55] VITALS: BP 140/79; PULSE 87; RESP 19; TEMP 37.1; O2SAT 98; BMI 32.9
[2023-06-07 19:12] LABS: UTC Influenza A Antigen Negative (Negative)
[2023-06-07 19:13] LABS: UTC Strep Screen (Rapid) Negative (Negative)
[2023-06-07 19:13] LABS: UTC Influenza B Antigen Negative (Negative)
[2023-06-07 19:21] VITALS: BP 140/79; PULSE 87; RESP 19; TEMP 37.1; O2SAT 98
== END 2023-06-07 19:46 | disposition home or self-care (01) ==
PROVIDERS: Emergency Provider Nurse Practitioner Family; PCP Nurse Practitioner Family
DX: J01.90 Acute sinusitis, unspecified (principal); R07.0 Pain in throat; R05.9 Cough, unspecified; B34.9 Viral infection, unspecified; K21.9 Gastro-esophageal reflux disease without esophagitis
CPT/HCPCS: 87804; 87880; 99212; 99214; G0463

== ENCOUNTER 2023-06-20 09:32 | Outpatient (CLI) | payer BC, SELFPAY ==
--- NOTE | 2023-06-20 09:33 | US_ITS ---
FINAL REPORT CLINICAL HISTORY: fatigue, goiter COMPARISON: 12/03/2022 FINDINGS: THYROID ULTRASOUND: The right lobe of the thyroid measures 4.9 x 1.6 x 2.4 cm in size, slightly enlarged. There is a dominant nodule in the right lobe of the thyroid, measuring 11 x 8 x 7 mm in size, cystic and solid, isoechoic, a TI-RADS category 3 nodule. Other small nodules are noted, similar to the prior ultrasound. The left lobe of the thyroid measures 4 x 1.3 x 2.3 cm in size. There is a dominant nodule in the left lobe of the thyroid, measuring 15 x 15 x 13 mm in size, was previously 15 x 14 x 12 mm in size. This mass is cystic and solid, isoechoic, a TI-RADS category 3 nodule. Once again there are other small nodules noted, similar to those found on the prior ultrasound. The isthmus of the thyroid measures 2 mm in thickness. IMPRESSION: Multiple stable nodules in the thyroid glands bilaterally, with a dominant TI-RADS category 3 nodule in the right lobe and a dominant TI-RADS category 3 nodule in the left lobe. These nodules are similar in appearance to the prior examination of November 2022. Recommend 12-month follow-up thyroid ultrasound. Reviewed, Interpreted and Dictated by Niels Frost III, MD Transcribed by Rosita Friend Authenticated and [facility]
[2023-06-20 11:10] LABS: Free T4 (Free Thyroxine) 0.96 ng/dl (0.78-2.19)
[2023-06-20 11:24] LABS: Thyroid Stimulating Hormone 0.85 uIU/mL (0.465-4.68)
== END 2023-06-20 23:59 ==
LOC: RAD 09:33
PROVIDERS: PCP Nurse Practitioner; Visit Provider Nurse Practitioner
DX: E04.2 Nontoxic multinodular goiter (principal); R53.83 Other fatigue
CPT/HCPCS: 36415; 76536; 84439; 84443

== ENCOUNTER 2023-12-03 14:21 | Outpatient (CLI) | payer BC, SELFPAY | END 2023-12-03 23:59 | disposition home or self-care (01) | LOC: LAB.DROPOF 12-04 12:15 | PROVIDERS: PCP Student in an Organized Health Care Education/Training Program; Visit Provider Student in an Organized Health Care Education/Training Program | DX: J02.9 Acute pharyngitis, unspecified (principal) | CPT/HCPCS: 87070 ==

== ENCOUNTER 2023-12-11 09:58 | Outpatient (CLI) | payer BC, SELFPAY ==
--- NOTE | 2023-12-11 09:59 | US_ITS ---
FINAL REPORT CLINICAL HISTORY: left thyroid pain/hx goiter COMPARISON: 06/20/2023 FINDINGS: Sonographic images of the thyroid gland were obtained. The right thyroid lobe measures 50 mm. in length. The left thyroid lobe measures 46 mm. in length. The thyroid isthmus measures 20 mm. The echogenicity is normal. Again identified are multiple bilateral thyroid nodules. Largest nodule on the right measures 9 mm and appears cystic, solid, and isoechoic. This is consistent with TI-RADS category 2. Largest nodule on the left measures 16 mm appears mostly cystic consistent with TI-RADS category 2. No new mass or nodule is identified. IMPRESSION: Stable bilateral thyroid nodules consistent with TI-RADS category 2. No follow-up is recommended. Reviewed, Interpreted and Dictated by Niels Frost III, MD Transcribed by Ashley Davis Authenticated and [facility]
== END 2023-12-11 23:59 | disposition home or self-care (01) ==
LOC: RAD 09:59
PROVIDERS: PCP Nurse Practitioner; Visit Provider Nurse Practitioner
DX: E01.0 Iodine-deficiency related diffuse (endemic) goiter (principal); E04.1 Nontoxic single thyroid nodule
CPT/HCPCS: 76536

== ENCOUNTER 2024-02-13 08:07 | Outpatient (CLI) | payer BC, SELFPAY ==
[2024-02-13 09:11] LABS: Basophils # 0.1 K/mm3 (0-0.2); Basophils % 1.5 % (0.1-2.0); Eosinophils # 0.1 K/mm3 (0.0-0.4); Hematocrit 42.2 % (37.0-47.0); Hemoglobin 14.3 g/dL (12.2-16.2); Lymphocytes # 1.4 K/mm3 (0.7-4.5); Lymphocytes % 26.6 % (10-50); Mean Corpuscular HGB Conc 33.8 g/dL (31.8-35.4); Mean Corpuscular Hemoglobin 30.2 pg (27.0-31.2); Mean Corpuscular Volume 89.4 fl (81-99); Mean Platelet Volume 8.5 fl (7.4-10.4); Monocytes # 0.3 K/mm3 (0.1-1.0); Monocytes % 6.2 % (1.7-9.3); Neutrophils # 3.3 K/mm3 (1.8-7.8); Neutrophils % 63.7 % (37.0-80.0); Platelet Count 199 K/mm3 (142-424); Red Blood Count 4.72 M/mm3 (4.20-5.40); Red Cell Distribution Width 13.2 % (11.5-17.5); White Blood Count 5.1 K/mm3 (4.8-10.8)
[2024-02-13 09:35] LABS: Hemoglobin A1C 4.7 % (4.0-6.0)
[2024-02-13 09:57] LABS: Alanine Aminotransferase 22 U/L (12-78); Albumin/Globulin Ratio 1.5 (1.1-1.8); Alkaline Phosphatase 62 U/L (38-126); Anion Gap 5.2 mEq/L (5-15); Aspartate Amino Transferase 31 U/L (14-36); Bilirubin,Total 0.7 mg/dl (0.2-1.3); Blood Urea Nitrogen 13 mg/dl (7-17); Carbon Dioxide 30 mmol/L (22.0-30.0); Chloride 109 mmol/L (98-107); Chol/HDL Ratio 2.9 (1-3.5); Cholesterol 130 mg/dl (140-200); Estimated Glomerular Filt Rate 111 ml/min (>60); GFR (African American) 135 ML/MIN (>60); Globulin 2.6 g/dL (1.3-3.2); Glucose 78 mg/dl (74-100); HDL Cholesterol 45 mg/dl (40-60); Potassium 4.2 mmoL/L (3.5-5.1); Sodium 140 mmol/L (136-145); Total Protein,Serum 6.6 g/dl (6.3-8.2); Triglycerides 54 mg/dl (30-150); VLDL Cholesterol 11 mg/dL (0-40)
[2024-02-13 10:30] LABS: Thyroid Stimulating Hormone 1.29 uIU/mL (0.465-4.68)
[2024-02-13 11:33] LABS: 25-OH Vitamin D, Total 83.8 ng/mL (30-100)
[2024-02-13 11:38] LABS: Ferritin 16.1 ng/ml (6.24-137)
[2024-02-13 13:23] LABS: Iron 83 ug/dL (37-170)
[2024-02-13 13:32] LABS: Total Iron Binding Capacity 364 ug/dL (265-497)
[2024-02-14 07:13] LABS: Prealbumin 19 mg/dL (14-35)
[2024-02-17 11:17] LABS: Methylmalonic Acid 125 nmol/L (0-378)
[2024-02-18 11:17] LABS: Vitamin A 28.1 ug/dL (18.9-57.3)
[2024-02-19 00:01] LABS: Vitamin B1 132.8 nmol/L (66.5-200.0)
[2024-02-19 00:07] LABS: Vitamin E Alpha Tocopherol 8.6 mg/L (5.9-19.4); Vitamin E Gamma Tocopherol 0.8 mg/L (0.7-4.9)
[2024-02-19 22:09] LABS: Zinc 74 ug/dL (44-115)
[2024-03-04 09:01] LABS: Selenium 117
== END 2024-02-13 23:59 | disposition home or self-care (01) ==
LOC: LAB 08:08
PROVIDERS: PCP Nurse Practitioner Family; Visit Provider Nurse Practitioner Family
DX: Z91.89 Other specified personal risk factors, not elsewhere classified (principal); E61.1 Iron deficiency
CPT/HCPCS: 36415; 80050; 80053; 80061; 82306; 82525; 82728; 82746; 83036; 83540; 83550; 83921; 84134; 84255; 84425; 84439; 84443; 84446; 84590; 84630; 85025

== ENCOUNTER 2024-03-21 08:46 | Emergency (ER) | payer BC, SELFPAY ==
--- NOTE | 2024-03-21 09:00 | EXP.UTC ---
Discharge Plan Disposition Patient Disposition: Home, Self-Care Condition: Good Prescriptions Prescriptions: New azithromycin [Zithromax] 250 mg tablet 250 mg PO UD DOSE PK Qty: 6 0RF Rx Instructions: Take two (2) tablets today, then one (1) tablet days #2 thru #5 methylprednisolone 4 mg Tablets,Dose Pack 4 mg PO DIRECTED 6 Days Qty: 21 0RF Rx Instructions: Take 1 pack as directed for 6 days xkzteebixzlasha-mbzdzkwxd-CA [Bromfed DM] 2-30-10 mg/5 mL Syrup 5 ml PO Q6H PRN (Reason: Cough) Qty: 240 0RF No Action (DME) insulin syringe-needle U-100 [Sure Comfort Insulin Syringe] 0.5 mL 31 gauge x 5/16 syringe See Rx Instructions .ROUTE .MEDSUPPLY Qty: 10 Patient Comments: USE DIRECTED Rx Instructions: As directed semaglutide 0.25 mg or 0.5 mg (2 mg/3 mL) pen injector 0.25 mg SQ WEEKLY Rx Instructions: for 4 weeks Referrals Follow up/Referrals: Haider Ng APRN [Primary Care Provider] - See instructions Activity Restrictions/Add. Instructions Additional Instructions/Restrictions: Drink plenty of fluids. Take tylenol or ibuprofen for pain or fever. Take the medications as directed. Follow up with your regular doctor. GO TO THE ER FOR ANY WORSENING SYMPTOMS Clinical Impressions Clinical Impression: Otitis media, Sinusitis Instructions Patient Instructions: Sinusitis, DI for Sinusitis Print Language Print Language: German Discharge ED Provider: Scott Kwon [facility] HPI General Stated complaint: sore throat, ear pain, cough Time Seen by Provider: 03/21/24 09:00 Related Data Home Medications ?Medication ?Instructions ?Recorded ?Confirmed insulin syringe-needle U-100 0.5 #10 ea 01/06/24 01/06/24 mL 31 gauge x 5/16 (Sure Comfort Insulin Syringe) semaglutide 0.25 mg or 0.5 mg (2 0.25 mg SQ WEEKLY 01/06/24 01/06/24 mg/3 mL) subcutaneous pen injector Previous Rx's ?Medication ?Instructions ?Recorded azithromycin 250 mg tablet 250 mg PO UD DOSE PK #6 tabs 03/21/24 (Zithromax) eyhuqabbejcukiy-buxqotskjmqnlkc-OK 5 ml PO Q6H PRN Cough #240 mL 03/21/24 2 mg-30 mg-10 mg/5 mL oral syrup (Bromfed DM) methylprednisolone 4 mg tablets in 4 mg PO DIRECTED 6 days #21 tabs 03/21/24 a dose pack Allergies Allergy/AdvReac Type Severity Reaction Status Date / Time No Known Allergies Allergy Verified 01/06/24 09:02 [facility] Disclaimer: The information contained in this section may have been updated after the patient was seen, as this information can be updated by other users. Medical History (Updated 03/21/24 @ 09:30 by Scott Kwon APRN) Thyromegaly Thyroid nodule History of thyroid nodule Pulmonary embolism Fatigue Multinodular goiter Goiter History of gastroesophageal reflux (GERD) Urinary tract infection Kidney stone Surgical History (Updated 01/06/24 @ 09:13 by Magui Melendrez, BARAK) History of hernia repair History of cholecystectomy History of tonsillectomy History of section Social History (Updated 01/06/24 @ 09:13 by Magui Melendrez, BARAK) Smoking Status: Former smoker alcohol intake: never current occupational status: employed Travel in the last 8 weeks: [place] the [place] household members: spouse and family housing: house Have you lived/traveled outside US in past 30 days?: No Contact w/someone who lives/traveled outside US past 30 days?: No Exposure to someone with infectious disease in past 14 days?: No Do you have a fever (greater than 100.4 F or 38 C)?: No Have you tested positive for COVID-19: No Exposed to someone with COVID-19 in past 14 days?: No Do you have a sore throat?: Yes Do you have a cough?: Yes Do you have any weakness?: No Do you have any diarrhea?: No Are you experiencing any unusual bleeding?: No Do you have any muscle aches/pain?: No Do you have any abdominal pain?: No Are you experiencing loss of taste or smell?: No ROS Obtained: Yes All systems reviewed & no additional complaints except as documented Constitutional Constitutional: Denies chills, Reports fever(s) and Reports poor appetite Eyes Eyes: Denies eye discharge ENT Ears, Nose, Mouth, and Throat: Denies ear discharge, Reports otalgia, Denies hearing loss, Denies sinus pain and Reports sore throat Cardiovascular Cardiovascular: Denies chest pain and Denies dyspnea Respiratory Respiratory: Denies chest congestion, Reports cough and Denies dyspnea Gastrointestinal Gastrointestingal: Denies abdominal pain, diarrhea, nausea or vomiting Musculoskeletal Musculoskeletal: Denies arthralgias Integumentary/Breasts Skin/Breast: Denies rash Physical Exam General General appearance: alert and in no apparent distress Head Head exam: atraumatic, normocephalic and normal inspection Eye Eye exam: Present normal appearance; Absent PERRL or EOMI ENT ENT exam: Present mucous membranes moist and normal external ear exam Expanded ENT Exam TM/Canal exam: Bilateral TM: erythema, bulging and effusion Nose exam: Absent sinus tenderness Nasal speculum exam: Bilateral: normal Mouth exam: Present normal external inspection and other; Absent drooling Teeth exam: Present normal inspection Throat exam: Present tonsillar erythema and tonsillomegaly Neck Neck exam: Present normal inspection, full ROM and trachea midline; Absent tenderness, meningismus or lymphadenopathy Chest Chest inspection: Present normal inspection and symmetric chest wall rise; Absent tenderness Respiratory Respiratory exam: Present normal lung sounds bilaterally; Absent respiratory distress, wheezes or stridor Cardiovascular Cardiovascular exam: Present regular rate, normal rhythm and normal heart sounds; Absent tachycardia or irregular rhythm Abdominal Exam Abdominal exam: Present soft and normal bowel sounds; Absent distention, tenderness, guarding, rebound or rigidity Extremities Exam Extremities exam: Present normal inspection and normal capillary refill; Absent tenderness, joint swelling or calf tenderness Back Exam Back exam: Present normal inspection and full ROM; Absent tenderness, CVA tenderness (R) or CVA tenderness (L) Neurological Exam Neurological exam: Present alert, oriented X3, CN II-XII intact, normal gait and reflexes normal; Absent motor sensory deficit Psychiatric Psychiatric exam: Present normal affect and normal mood Skin Skin exam: Present warm, dry, intact and normal color Lymphatic Lymphatic Findings: no adenopathy Medical Decision Making Medical Records Medical records reviewed: No I reviewed the patient's medical records. Screening: Per USPSTF and CDC recommendations, given the prevalence of disease in our region, it is our hospital?s policy to screen for HIV and viral Hepatitis for all patients aged 18 and over and those with ongoing risk factors. Mau Inquiry Pt receiving controlled substance: No
[2024-03-21 09:03] VITALS: BP 128/86; PULSE 78; RESP 18; TEMP 36.5; O2SAT 97; BMI 31.1
[2024-03-21 09:11] LABS: UTC Strep Screen (Rapid) Negative (Negative)
[2024-03-21 09:30] VITALS: BP 128/86; PULSE 78; RESP 18; TEMP 36.5
== END 2024-03-21 09:47 | disposition home or self-care (01) ==
PROVIDERS: Emergency Provider Nurse Practitioner Family; PCP Nurse Practitioner Family
DX: H66.93 Otitis media, unspecified, bilateral (principal); J32.9 Chronic sinusitis, unspecified; H92.03 Otalgia, bilateral; R05.9 Cough, unspecified; J02.9 Acute pharyngitis, unspecified; R63.8 Other symptoms and signs concerning food and fluid intake
CPT/HCPCS: 87880; 99212; G0381

== ENCOUNTER 2024-06-25 08:04 | Outpatient (CLI) | payer BC, SELFPAY ==
--- NOTE | 2024-06-25 08:05 | US_ITS ---
FINAL REPORT TECHNIQUE: Limited sonographic images of the thyroid were obtained. CLINICAL HISTORY: history of thyroid nodules COMPARISON: 12/11/2023 FINDINGS: Right thyroid volume is 8.5 mL. Multiple right thyroid nodules are again noted, largest in the right lobe measures up to 9 mm, unchanged. There are at least 4 nodules within the right lobe that have not significantly changed. Left thyroid volume is 6.4 mL. There are at least 4 nodules in the left lobe, largest measures 10 mm which is predominantly cystic in nature, previously measured 16 mm. Largest solid lesion in the left lobe measures 8 mm, unchanged. IMPRESSION: Findings consistent with multinodular goiter without significant change, strongly favor benign. No further follow-up is considered indicated given size and morphology of nodules. Reviewed, Interpreted and Dictated by Yamile Lacy MD Transcribed by Ashley Davis Authenticated and [facility]
== END 2024-06-25 23:59 | disposition home or self-care (01) ==
LOC: RAD 08:05
PROVIDERS: PCP Nurse Practitioner Family; Visit Provider Nurse Practitioner
DX: E04.1 Nontoxic single thyroid nodule (principal)
CPT/HCPCS: 76536

== ENCOUNTER 2025-02-26 08:53 | Outpatient (CLI) | payer BC, SELFPAY ==
--- NOTE | 2025-02-26 08:45 | US_ITS ---
FINAL REPORT TECHNIQUE: Real-time grayscale and color ultrasound of the thyroid was performed. CLINICAL HISTORY: 8 month f/u COMPARISON: 06/25/2024 FINDINGS: The thyroid gland measures 44 x 17 x 21 mm on the right and 41 x 14 x 17 mm on the left. The isthmus measures 2 mm. Nodules: There is a multitude of subcentimeter nodules bilaterally measuring up to 9 mm in the lower pole right lobe and up to 8 mm mid pole left lobe. Findings are consistent with multinodular goiter. IMPRESSION: Multinodular goiter. No further follow-up required per TI-RADS criteria. Reviewed, Interpreted and Dictated by Tomy Connolly MD Transcribed by Magui Bateman Authenticated and [facility]
--- OUTSIDE RECORDS SUMMARY | 2025-02-26 08:55 | XMS_ITS | Patient Health Record ---
[facility] [address] [place] [address] [place] [id number] Care Team Providers Care Cavity Pump Operator Name Role Phone Lino James Primary Care Provider Marlon Vang Unavailable [phone] Reason For Referral No Information Medications Medication SIG (Take, Route, Frequency, Duration) Notes Start Date End Date Status Nabumetone 750 MG 2 tab(s) orally once a day; Duration: 30 day(s) 08/15/2018 Active Tamiflu 75 MG 1 cap(s) orally 2 ti mes a day; Duration: 5 day(s) 02/08/2022 Active Esomeprazole Magnesium 40 MG 1 cap(s) orally once a day; Duration: 30 day(s) 02/18/2019 Active Problems Problem Type SNOMED Code ICD Code Onset Dates Problem Status W/U Status Risk Notes Problem History of pulmonary embolus (080052988) History of pulmonary embolism (Z86.711) Active confirmed Problem Gastroesophageal reflux disease (103768765) Gastroesophageal reflux disease, esophagitis presence not specified (K21.9) Active confirmed Problem Bilateral carpal tunnel syndrome (38782182167406502) Bilateral carpal tunnel syndrome (G56.03) Active confirmed Plan Of Treatment No Information Insurance Providers Payer Name Payer Address Payer Phone Subscriber Number Group Number Insured Name Patient Relationship to Insured Coverage Start Date Coverage End Date [facility] [address] [place] [address] [id number] SUSHIL MOORE Self - patient is the insured Medications Administered Medication Instructions Date of Administration Dosage Notes Dexamethasone 04/02/2018 1 mL Medical (General) History Medical History History ICD Code Tobacco use disorder, quit 2016 Chronic constipation GERD pulmonary embolism, 2017, 6 weeks post p artum carpal tunnel syndrome, Dx 2017 Surgical History Surgery Date(Month/Year) none 08/08/16 Hospitalization History Reason Date(Month/Year) [facility] child 08/08/16 [facility] ER - chest pain 09/21/15
--- OUTSIDE RECORDS SUMMARY | 2025-02-26 08:55 | XMS_ITS | Clinical Summary ---
Author Organization Healthcare Address [address] [place] [address] Care Team Providers Care Cloud Subject Matter Expert Name Role Phone Susan Goodwin APRN Primary Care Provider [phone] Family History Medical History Relation Name Comments Diabetes Maternal Grandmother Stroke Mother Relation Name Status Comments Maternal Grandmother Mother Social History Tobacco Use Types Packs/Day Years Used Date Smoking Tobacco: Every Day Alcohol Use Standard Drinks/Week Comments No 0 (1 standard drink = 0.6 oz pur e alcohol) Comments Unknown Sex and Gender Information Value Date Recorded Sex Assigned at Not on file Legal Sex Female 8:08 PM EDT Gender Identity Not on file Sexual Orientation Not on file Last Filed Vital Signs Vital Sign Reading Time Taken Comments Blood Pressure - - Pulse - - Temperature - - Respiratory Rate - - Oxygen Saturation - - Inhaled Oxygen Concentration - - Weight 82.7 kg (182 lb 5.1 oz) 12/04/2013 1:51 P M EDT Height 160 cm (5' 3 ) 08/07/2013 1:09 PM EDT Body Mass Index 32.3 08/07/2013 1:09 PM EDT Plan of Treatment Not on file Care Teams Cloud Subject Matter Expert Relationship Specialty Start Date End Date Susan Goodwin APRN [address] [place] [address] PCP - General 08/19/20
--- OUTSIDE RECORDS SUMMARY | 2025-02-26 08:55 | XMS_ITS | Patient Health Record ---
Author Organization [facility] Address [address] [place] [address] [address] [place] [address] Care Team Providers Care Senior Product Marketing Manager Name Role Phone ASIF STEELE Unavailable [phone] Reason For Referral No Information Medications Medication SIG (Take, Route, Frequency, Duration) Notes Start Date End Date Status Linzess 72 MCG 1 capsule at least 30 minutes before the first meal of the day on an empty stomach orally once a day Active Semaglutide (2 MG/DOSE) 8 MG/3ML as directed Subcutaneous weekly; Duration: 30 days Compound Semaglutide 4mg/ Methylcobalamin 1mg/1ml. 60 units weekly. with syringes 06/29/2024 Active Vital Signs Heart Rate 78 /min 06/29/2024 Temperature 98.4 degrees Fahrenheit 06/29/2024 Respiratory Rate 16 /min 06/29/2024 Oximetry 98 % 06/29/2024 Blood pressure diastolic 80 mm Hg 06/29/2024 Height-cm 157.48 cm 06/29/2024 Weight-kg 74.84 kg 06/29/2024 Height 62 in 06/29/2024 Blood pressure systolic 116 mm Hg 06/29/2024 Weight 165 lbs 06/29/2024 BMI 30.18 kg/m2 06/29/2024 Encounters Encounter Location Date Provider Diagnosis [facility] [address] [place] [address] [address] [place] [address] 06/29/2024 ASIF IVETTE Weight loss advised V49.89 [facility] [address] [place] [address] 09/15/2024 ASIF IVETTE Assessments Encounter Date Diagnosis (ICD Code) Assessment Notes Treatment Notes Treatment Clinical Notes Section Notes 06/29/2024 Weight loss advised (ICD9-CM - V49.89) Plan Of Treatment No Information Medical (General) History Medical History History ICD Code Obesity Hx GERD- resolved after gastric bypass
== END 2025-02-26 23:59 | disposition home or self-care (01) ==
LOC: RAD 08:54
PROVIDERS: PCP Nurse Practitioner Family; Visit Provider Nurse Practitioner
DX: E04.2 Nontoxic multinodular goiter (principal)
CPT/HCPCS: 76536